=== PATIENT | female | born 1980 | race Caucasian/White ===

== ENCOUNTER 2016-12-31 21:38 | Observation (INO) | payer OTHER ==
[2016-12-31 21:57] LABS: Bilirubin Negative (Negative); Blood, Urine Moderate (Negative); Glucose, Urine (Dipstick) Negative (Negative); Ketone, Urine Negative (Negative); Nitrite Negative (Negative); Protein, Urine (Dipstick) Trace mg/dL (Neg-Trace); Urobilinogen 0.2 mg/dL (0.2-1.0)
[2016-12-31 21:58] LABS: Hyaline Casts/LPF 0-3 HYALINE CAST LPF (0-3 Hyaline); RBC/HPF 21-50 HPF (0-3)
[2016-12-31] MEDS ORDERED: Ondansetron HCl/PF 4 MG/2 ML Vial ONE (22:02)
[2016-12-31] MEDS ORDERED: Morphine 10 MG/ML VIAL ONE (22:02)
[2016-12-31 22:07] LABS: Bacteria/HPF 1+ HPF (None Seen)
--- NOTE | 2016-12-31 22:37 | RAD ---
ONE VIEW ABDOMEN: History: patient. Kidney stone. Comparison: 01-27-16 FINDINGS: Nonspecific bowel gas pattern. Scattered fecal material in a nondistended, nondilated colon is noted . There are punctate calcifications projecting over the left and right renal silhouette. Bilateral r enal calculi are suspected. There is a calcification in the right hemipelvis which was not present o n the examination from January 2016. The possibility of a distal right ureteral calculus cannot be excluded. IMPRESSION: 1. Bilateral intrarenal calculi. 2. Possible distal right ureteral calculus. POS: [facility]
--- NOTE | 2016-12-31 23:48 | ULT ---
RENAL ULTRASOUND: History: patient. Right flank pain. Comparison: 11-04-15 FINDINGS: There is mild dilatation of the right intrarenal collecting system. There is mild right renal cortic al thinning. Nonobstructing calcifications of the renal pelvis are noted. There is left renal cortical thinning. No hydronephrosis. Nonobstructing calcification identified. Left ureteral jet is appreciated. Right ureteral jet is not appreciated. As stated on recent one vie w abdomen, there appears to be a calcification in the right hemipelvis, likely representing a right ureteral calculus. IMPRESSION: Mild right side obstructive uropathy, presumably related to a distal right ureteral calculus. Right ureteral jet not appreciated. POS: [facility]
[2016-12-31 23:49] LABS: #Basophils 0.1 thou/uL (0.0-0.2); #Eosinphils 0.1 thou/uL (0.0-0.7); #Lymphocytes 5.1 thou/uL (1.20-3.40); #Monocytes 1.1 thou/uL (0.11-0.59); #Neutrophils 10.9 thou/uL (1.40-6.50); %Basophils 0.7 % (0.0-1.0); %Eosinophils 0.4 % (0.0-10.0); %Lymphocytes 29.6 % (21.0-51.0); %Monocytes 6.3 % (0.0-10.0); Hematocrit 40.8 % (36.0-47.0); Mean Platelet Volume 9.3 fL (7.4-10.4); Red Blood Cell (RBC) Count 4.29 mill/uL (4.20-5.40); White Blood Cell (WBC) Count 17.3 thou/uL (4.8-10.8)
[2017-01-01] LABS: ALT (SGPT) 10 U/L (8-55); AST (SGOT) 18 U/L (5-34); Alkaline Phosphatase 79 U/L (40-150); Anion Gap 15 mmol/L (10-20); BUN (Urea Nitrogen) 9 mg/dL (7.0-18.7); Bilirubin, Total 0.4 mg/dL (0.2-1.2); Calc. Creatinine Clearance 0 mL/min (70-130); Calcium 9.7 mg/dL (7.8-10.44); Carbon Dioxide 20 mmol/L (22-29); Chloride 104 mmol/L (98-107); Estimated GFR-MDRD 88; Globulin 3.5 g/dL (2.4-3.5); Protein, Total 7.6 g/dL (6.0-8.3)
[2017-01-01] MEDS ORDERED: Ondansetron HCl/PF 4 MG/2 ML Vial IVP PRN (00:18)
[2017-01-01] MEDS ORDERED: MORPHINE 10 MG/ML SYRINGE IV PRN (00:18)
[2017-01-01] MEDS ORDERED: Ondansetron ODT 4 MG TAB SL PRN (00:18)
[2017-01-01 00:34] VITALS: BMI 42.1
[2017-01-01] MEDS ORDERED: Promethazine HCl 25 MG/ML VIAL IM/IV PRN (00:55)
[2017-01-01] MEDS ORDERED: Morphine 4 MG/ML Carpuject SLOW IVP SCH (01:00)
[2017-01-01] MEDS ORDERED: Ketorolac Tromethamine 30 MG/ML VIAL IVP SCH (01:15)
[2017-01-01] MEDS ORDERED: Promethazine HCl 25 MG in Sodium Chloride 0.9% 100 ML IVPB PRN (01:17)
[2017-01-01] MEDS: Sodium Chloride 0.9% 1,000 ML IV SCH ×2 (01:20→09:31)
[2017-01-01] MEDS ORDERED: Acetaminophen 1,000 MG in Premix Bag 1 BAG IVPB SCH (06:00)
[2017-01-01] MEDS: Acetaminophen 1,000 MG in Premix Bag 1 BAG IVPB SCH ×2 (06:35→14:21)
--- NOTE | 2017-01-01 07:36 | CON ---
DATE OF SERVICE: 01/01/2017 HISTORY OF PRESENT ILLNESS: Kathleen is a 36-year-old female G3, P2, well known to me with history of recurrent urolithiasis. The patient has undergone multiple surgical interventions for bilateral kidney stones. I last performed a right ureteroscopy, pyeloscopy, laser lithotripsy 01/21/2016 with endoscopic clearance of her right renal stone burden demonstrating multiple right renal calculi 3-4 in number, variable from punctate, largest in the mid pole measuring 8 mm, lower pole 4 mm, respectively. She subsequently underwent cysto , right stent pull in my office, has cancelled her last appointment with me this year in May. She called the service last night, due to intractable right flank pain, with intermittent nausea. The patient presented to the emergency room with no fever. Vital signs stable; however, has a white count of 17,000. Workup with renal ultrasound demonstrates mild hydronephrosis. Left kidney is grossly unremarkable, right kidney is grossly unremarkable. However, the left ureteral jet was visualized; however, there is no evidence her right ureteral jet. The patient has required IV pain medication since admission. Currently, resting appropriately. She states the pain began this Sunday. She is currently 15 weeks , estimated due date 06/26/2017. PAST MEDICAL HISTORY: History of ulcerative colitis, anxiety/depression, ADD, IBS, mild asthma, recurrent kidney stone, history of preeclampsia, history of gestational diabetes, gallstones. SURGICAL HISTORY: Right wrist 2001. 07/10/2013, history of bilateral retrograde left ureteroscopy, laser lithotripsy 12/2011, right ureteroscopy, laser lithotripsy 04/2012, left ureteroscopy, laser lithotripsy , 07/08/2013, da [place] laparoscopic cholecystectomy. Left retrograde ureteroscopy, laser lithotripsy 07/2014, left ureteroscopy, laser lithotripsy 07/2015, right ureteroscopy, laser lithotripsy 01/2016 SOCIAL HISTORY: She is an ER nurse, lives with her and has 2 healthy children at home. ALLERGIES: No known drug allergies. CURRENT MEDICATIONS: Rocephin, morphine, Zofran, Promethazine. PHYSICAL EXAMINATION: VITAL SIGNS: Stable, 98.3, 70, 124/65, respirations 20. I's and O's, 1114 in, 200 out. GENERAL: The patient currently resting comfortably, has received IV Toradol by OB, with relief of pain on IV Tylenol, Dilaudid p.r.n. HEENT: Grossly unremarkable. HEART: Regular rate. LUNGS: Clear. ABDOMEN: Obese, protuberant. I did not grossly appreciated a gravid uterus on physical exam. No CVA tenderness. Subjective area discomfort in the right lower quadrant. EXTREMITIES: No cyanosis, clubbing or edema. : No significant prolapse. Bimanual exam nontender LABORATORY: White count 17, hemoglobin 13, platelets 234. Urinalysis demonstrated contaminated specimen with 11-20 epithelial cells, 20-50 RBCs, 11- 20 WBCs, small leukocytes, 1+ bacteria, moderate blood, negative nitrites, small leukocytes. IMAGING: Her last CT of record, stone protocol 09/2015. Bilateral nonobstructing renal calculi per my review, left renal no gross evidence of left renal calculi. There are multiple right renal calculi 3-4 in number punctate to large mid pole 7-8 mm, lower pole 4 mm on the right. No hydro bilaterally. The last renal ultrasound on admission, mild dilation of the right collecting system, nonobstructing calcification in the renal pelvis noted. Left kidney with nonobstructing calcification. Left ureteral jet is appreciated. The right ureteral jet is not appreciated. KUB; bilateral calcific density consistent with renal lithiasis. There is a right yana pelvic calcific density not present on prior imaging likely distal ureteral calculi, per my review, it measures approximately 6-7 mm likely the level just proximal or at the level of ureterovesical junction. IMPRESSION AND PLAN: 1. Kathleen is a 36-year-old female, G3, P2 with history of recurrent urolithiasis, who presents on this admission due to intractable pain due to right distal ureteral calculi 2. Leukocytosis with no significant ureteral jet is visualized. I discussed with patient regarding options of: Nephrostomy tube, ureteral stent. If no surgical intervention, i.e., ureteroscopy, laser lithotripsy she will require nephrostomy tube, ureteral stent to be changed at minimum every 4-8 weeks. As she is a recurrent stone former, I would favor more frequent nephrostomy tube, stent exchange until term. The other option include as she is in her second trimester to proceed with stent, ureteroscopy, laser lithotripsy. We discussed the risk of fluoro exposure, although limited and anesthesia complications. I informed the patient the second trimester is an ideal time for ureteroscopy, laser lithotripsy of stone, as compromise as well as technical aspects of grossly gravid uterus is less likely. With all risks and benefits outlined, she desires to proceed with stent, ureteroscopy, laser lithotripsy if amendable. As urinalysis is contaminated recheck UA C\T\S is to be obtained. Results may be somewhat confounded as she has already received Rocephin. The patient n.p.o. for ureteral stent. MTDD
--- NOTE | 2017-01-01 07:58 | HP ---
DATE OF ENCOUNTER: 01/01/2017 PRIMARY OB: Dr. Robert Rey. CHIEF COMPLAINT: Abdominal pain and ureterolithiasis, recurrent. HISTORY OF PRESENT ILLNESS: The patient is a 36-year-old female with an intrauterine at a pproximately 15 weeks gestation with a history of recurrent kidney stones who has presented with acu te onset of right-sided abdominal pain and flank pain that began intermittently about 4 days ago. T he evaluation in the emergency room has confirmed a kidney stone in the distal ureter as well as a n onobstructing stone in the kidney itself. The patient reports she has had kidney stones several martha es in the past and this is the worst that she has felt. Patient denies fever. Reports nausea and v omiting. Denies chest pain, shortness of breath. Denies new rash. Denies vaginal bleeding. Denie s urinary urgency or hematuria. PAST MEDICAL HISTORY: Ulcerative colitis in remission and irritable bowel syndrome. PAST SURGICAL HISTORY: Cholecystectomy, history of section, and ureteral stent placements. PSYCHIATRIC HISTORY: Anxiety and depression. SOCIAL HISTORY: The patient drinks alcohol on occasion last time a couple months ago. The patient denies smoking or drug use. ALLERGIES: No known drug allergies. MEDICATIONS: Zoloft, Ambien, Lialda otherwise known as mesalamine, Diclegis, DHA, Biotin, and Benad ryl. REVIEW OF SYSTEMS: Per HPI. PHYSICAL EXAMINATION: VITAL SIGNS: Blood pressure 144/80, temperature 98.4, pulse is 77, respiratory rate 20. GENERAL: She appears to be in acute distress. She is unable to find a comfortable position and is frequently changing positions in the bed. HEAD: Normocephalic, atraumatic. LUNGS: Clear to auscultation bilaterally. HEART: Has regular rate and rhythm. ABDOMEN: Protuberant. She has right-sided flank and abdominal pain. LABORATORY DATA: White blood cell count is 17.3, hemoglobin 13.4, hematocrit 40.8, platelets of 234 ,000. Sodium is 136, potassium is 3.3, and creatinine is 0.74. LFTs are within normal limits. Uri ne is cloudy with a high specific gravity of 1.024 with a moderate amount of blood, 21 to 50 white b lood cells, negative for nitrites, small leukocyte esterase, positive for calcium oxalate stones or crystals and 1+ bacteria. IMAGING: Abdominal x-ray shows bilateral intrarenal calculi and a possible distal right ureteral ca lculus. Ultrasound shows mild right-sided obstructive uropathy, presumably related to the right dis verito ureteral calculus and a right ureteral jet not appreciated. ASSESSMENT AND PLAN: The patient is a 36-year-old female with an intrauterine at 15 weeks who is having significant right-sided flank pain due to a recurrent kidney stone. The patient rece ived 8 mg of morphine and 1 mg of Dilaudid in the ER without much benefit. We have ordered IV Tylen ol and Phenergan and have gotton 1 more mg of Dilaudid. After IV Tylenol and Dilaudid, patient repo rts that she is feeling a lot better. There is Toradol available in the event that her pain relapse s before she is due for mehul IV Tylenol. The patient's urologist is planning on seeing her in the [facility] and Dr. Benavides, plan tonight is primarily pain control. The patient does not appeared t o be having any residual effects, i.e. elevated creatinine or signs of acute renal failure due to th is ureteral obstruction.
[2017-01-01 08:11] LABS: Bilirubin Negative (Negative); Blood, Urine Small (Negative); Glucose, Urine (Dipstick) Negative (Negative); Ketone, Urine Negative (Negative); Nitrite Negative (Negative); Protein, Urine (Dipstick) Negative (Neg-Trace); Urobilinogen 0.2 mg/dL (0.2-1.0)
[2017-01-01 08:13] LABS: Bacteria/HPF Rare-Few HPF (None Seen); Hyaline Casts/LPF 0-3 HYALINE CAST LPF (0-3 Hyaline); WBC/HPF 21-50 HPF (0-3)
--- NOTE | 2017-01-01 08:50 | PDOC.EVN ---
Event Note - Event Note Event Note: HD#1 Pt is sp consult w urology w plan for cyto, stent placement and possible laser today for obstructing ureteral stone. Questions answered, risk and benefit of procedure in relation to care and development discussed briefly. Likely DC after procedure today.
[2017-01-01] MEDS ORDERED: Fentanyl 100 MCG/2 ML VIAL ONE (10:53)
[2017-01-01] MEDS ORDERED: Iothalamate Meglumine 60% 50 ML VIAL FS ONE (11:11)
[2017-01-01] MEDS ORDERED: Succinylcholine Chloride 20 MG/ML 10 ml SYRINGE FS ONE (11:24)
[2017-01-01] MEDS ORDERED: Glycopyrrolate 0.2 MG/ML 5 ML SYRINGE ONE (11:24)
[2017-01-01] MEDS ORDERED: ePHEDrine/0.9% NaCl/PF SYRINGE 50 mg/10 ml ONE (11:24)
[2017-01-01] MEDS ORDERED: Propofol 200 MG/20 ML VIAL ONE ×2 (11:24)
[2017-01-01] MEDS ORDERED: Lidocaine 1% PF 5 ML VIAL ONE (11:24)
[2017-01-01] MEDS ORDERED: cefTRIAXone\\ROCEPHIN 1 GM, Syringe 0.4 ML in Sterile Water 9.6 ML SLOW IVP SCH ×2 (12:00→23:30)
[2017-01-01] MEDS ORDERED: HYDROcodone/Acetaminophen 5/325 mg Tablet PO PRN ×2 (12:29)
[2017-01-01] MEDS ORDERED: Acetaminophen 500 MG TAB PO PRN (12:29)
[2017-01-01] MEDS ORDERED: Sodium Chloride 0.9% 1,000 ML IV SCH (12:30)
[2017-01-01] MEDS ORDERED: Promethazine HCl 25 MG/ML VIAL ONE (12:46)
--- NOTE | 2017-01-01 15:35 | OP ---
DATE OF PROCEDURE: 01/01/2017 PREOPERATIVE DIAGNOSES: 1. A 36-year-old female G3, P2. Fifteen weeks average gestational age, due date of 06/26/2017, presents for right intractable flank discomfort due to obstructing right distal ureteral calculi measuring 6-7 mm on KUB, renal ultrasound demonstrating no R ureteral jet 2. Bilateral nephrolithiasis, right renal calcific density x3, right mid to upper pole 5 mm, second calcific density 3 mm, 3rd right lower pole 3 3. Left 2-3 mm renal calcific density. POSTOPERATIVE DIAGNOSES: Same PROCEDURES: Cystoscopy, right retrograde; ureteroscopy; pyeloscopy; laser lithotripsy; 6 x 26 double-J ureteral stent placement with danglluis. SURGEON: Jaclyn Benavides D.O. ANESTHESIA: General per patient's request; spinal denied. COMPLICATIONS: None apparent. DISPOSITION: To the recovery room in stable condition. SPECIMEN: Laser lithotripsy of renal calculus for stone analysis. INTRAOPERATIVE FINDINGS: 1. Right intramural ureter changes consistent with obstructing ureteral stone with no evidence of persistent ureteral stone nidus, consistent with spontaneous passage. 2. Multiple right Randalls plaque consistent with recurrent stone from right mid to upper pole and lower pole renal calculi measuring approximately 4-5mm each. 3. Bladder without evidence of gross stone nidus. INDICATIONS FOR PROCEDURE AND HISTORY: Kathleen is a 36-year-old female well known to [place] with recurrent urolithiasis. The patient was last seen 01/27/2016 and she underwent right ureteroscopy and laser lithotripsy with endoscopic clearance. She underwent subsequent stent pull. She subsequently failed to follow up with me on May, patient presented to the emergency room late last night due to intractable right flank pain with intermittent nausea, emesis. She denies history of fever and chills. Pain has been present for approximately 3-4 days. Renal ultrasound demonstrated right hydronephrosis with no evidence of right ureteral jet. Urinalysis initially contaminated with no gross nitrite negative. Recheck UA C\S demonstrates persistent contaminated specimen as catheterization was somewhat hindered by her body habitus; however, no significant bacteriuria was noted. As there is no ureteral jet on renal ultrasound and intractable pain, she desired to proceed with ureteroscopy. She has been fully informed regarding alternative indications such as ureteral stent , nephrostomy tube. If ureteral stent and nephrostomy tube with defer treatment , it will require interval exchanges. I did express concern regarding incrustation of ureteral stent and nephrostomy tube for prolonged period of time in recurrent stone former such as herself. We also discussed risks of anesthesia to patient and fetus given her gestational age. However, as she is in second trimester, I informed the patient that technically, ureteroscopy would be conducible/ideal in second trimester, and although risk is present for the fetus, it is significantly less than in the first trimester. With all risks and benefits outlined, she desires to proceed with ureteroscopy, treatment of her stone. She has been provided broad spectrum antibiotic therapy , spontaneous passage of stone was not appreciated by the nursing staff or the patient. DESCRIPTION OF THE PROCEDURE: After an informed consent is signed, the patient is taken to the operating room, placed in a dorsal lithotomy position with the genital area prepped and draped in the usual surgical sterile fashion. Broad- spectrum antibiotics were provided. A 21 Kinyarwanda cystoscope was utilized for cystoscopy which demonstrated no evidence of passed stone in the bladder. The UOs are identified in normal anatomical location, appeared mildly patulous. There was dilated intramural ureter, consistent with history of obstructing ureteral stone. A 0.35 sensor wire was passed to the level of the right upper pole. I did shield the patient's lower pelvis to protect the fetus at all times Wire was confirmed to be in the right upper pole and a rigid ureteroscope was passed. There was a mass effect indentation of the intramural ureter consistent with history of impacted obstructing ureteral stone. However , the stone was not visualized. I did pass the scope with no gross evidence of stone. As she was passively dilated, a 10 Kinyarwanda dual-lumen access sheath was passed through the existing wire, retrograde pyelogram was performed confirming opacification of the collecting system. Throughout the whole procedure, lower pelvis was covered with lead to avoid fluoroscopic exposure to the fetus. With the wire confirmed, I was able to pass 01/01 Kinyarwanda 26 cm navigator without any problems. I did survey the collecting system demonstrating multiple renal lithiasis. Largest in the right upper pole measuring approximately 5 mm, lower pole approximately 4-5 mm. I did laser lithotripsied these into tiny fragments. Some of the stones were fragmented without difficulty. The residual stones were too small to basket or laser lithotripsy at this time. As we did make progress in her renal lithiasis, I surveyed the ureter, which demonstrated no evidence of mucosal trauma, no evidence of ureteral calculi. A 6 x 26 double-J ureteral stent was then passed. All wires and navigated were removed. The dangler was left in situ. Her right kidney stones were prophylactically treated, as there was ease of accessing her upper right collecting system. Bladder was completely emptied and she tolerated the procedure well. If patient is doing well this afternoon, she will be discharged with antibiotic therapy and pain control as tolerated. Anticipate stent pull in next week. Increased water consumption is advised. I do expect that residual stone nidus as they are small to pass ideally uneventfully. JOSHD
--- NOTE | 2017-01-01 15:46 | RAD ---
RETROGRAD IVP: Comparison: 01-21-16 History: Renal stones. FINDINGS: Intraprocedure fluoroscopy is provided. Two images demonstrate a right sided wire and subsequent pig tail catheter. Contrast opacifies the collecting system. IMPRESSION: Fluoroscopy as above. POS: [facility]
[2017-01-01 17:47] VITALS: BP 122/73; TEMP 98.3
[2017-01-02] MEDS ORDERED: cefTRIAXone\\ROCEPHIN 1 GM, Syringe 0.4 ML in Sterile Water 9.6 ML SLOW IVP SCH (11:00)
[2017-01-02] MEDS ORDERED: cefTRIAXone\\ROCEPHIN 1 GM in Sodium Chloride 0.9% 100 ML IVPB SCH (23:30)
[2017-01-05 12:13] LABS: CA Oxalate Dihydrate 10 % (.); CA Oxalate Monohydrate 70 % (.); CA Phosphate 20 % (.); Color Brown (.)
== END 2017-01-01 17:45 | disposition home or self-care (01) ==
LOC: ERS 21:38 → 3SW 01-01
PROVIDERS: ADMIT Obstetrics & Gynecology; ATTEND Obstetrics & Gynecology
PROC: 0TF68ZZ Fragmentation in Right Ureter, Via Natural or Artificial Opening Endoscopic (ICD-10-PCS; principal; 2017-01-01)
PROC: 0T768DZ Dilation of Right Ureter with Intraluminal Device, Via Natural or Artificial Opening Endoscopic (ICD-10-PCS; 2017-01-01)
DX: O99.89 Other specified diseases and conditions complicating pregnancy, childbirth and the puerperium (principal); N20.2 Calculus of kidney with calculus of ureter; K58.9 Irritable bowel syndrome, unspecified; F41.8 Other specified anxiety disorders; F90.0 Attention-deficit hyperactivity disorder, predominantly inattentive type; J45.909 Unspecified asthma, uncomplicated; D72.829 Elevated white blood cell count, unspecified; Z3A.15 15 weeks gestation of pregnancy; Z79.899 Other long term (current) drug therapy; Z90.49 Acquired absence of other specified parts of digestive tract; Z98.890 Other specified postprocedural states; Z87.442 Personal history of urinary calculi; Z87.59 Personal history of other complications of pregnancy, childbirth and the puerperium
CPT/HCPCS: 51701; 74018; 74420; 76770; 80053; 81001; 81003; 81015; 82365; 85025; 87086; 88300; 94760; 96361; 96365; 96367; 96374; 96375; 96376; A4216; A4353; C1758; C1769; G0378; J0131; J0696; J1170; J1885; J2001; J2270; J2405; J2550; J2704; J3010; J7050; Q9961

== ENCOUNTER 2017-02-17 20:07 | Day surgery (SDC) | payer OTHER | END 2017-02-17 20:47 | disposition home or self-care (01) | LOC: ERS 20:07 → ER/OP 20:07 → ERS 20:47 | PROVIDERS: ATTEND Emergency Medicine | DX: Z57.8 Occupational exposure to other risk factors (principal) ==

== ENCOUNTER 2017-05-09 12:36 | Day surgery (SDC) | payer OTHER ==
[2017-05-09 14:49] VITALS: BP 119/67; TEMP 99.1
[2017-05-09 14:50] VITALS: BMI 42.7
--- NOTE | 2017-05-09 17:54 | PDOC.EVN ---
Event Note - Event Note Event Note: Pt was sent from the office today for monitoring after being evaluated by [place] CNM and noting tachycardia on doppler. The pt was dx w URI that day as that was her presented complaint, tachycardia was incidental finding on doppler evaluation. The pt was observed on L and D with normal FHT, no tachycardia. While I was here evaluating a patient I reviewed her strip and gave a verbal discharge order to charge nurse for her to go home.
== END 2017-05-09 14:33 | disposition home or self-care (01) ==
LOC: L&D/OP 12:36
PROVIDERS: ATTEND Obstetrics & Gynecology
DX: O76 Abnormality in fetal heart rate and rhythm complicating labor and delivery (principal); O99.519 Diseases of the respiratory system complicating pregnancy, unspecified trimester; J06.9 Acute upper respiratory infection, unspecified; O99.619 Diseases of the digestive system complicating pregnancy, unspecified trimester; K51.90 Ulcerative colitis, unspecified, without complications; O99.340 Other mental disorders complicating pregnancy, unspecified trimester; F41.9 Anxiety disorder, unspecified; F32.9 Major depressive disorder, single episode, unspecified; Z3A.00 Weeks of gestation of pregnancy not specified; Z79.899 Other long term (current) drug therapy
CPT/HCPCS: 99282

== ENCOUNTER 2017-05-26 15:47 | Day surgery (SDC) | payer OTHER ==
[2017-05-26 16:28] VITALS: BP 136/67; TEMP 98.6; BMI 43.5
[2017-05-26] MEDS ORDERED: Lactated Ringer's 1,000 ML IV SCH ×2 (16:45)
[2017-05-26] MEDS ORDERED: Promethazine HCl 25 MG/ML VIAL IM/IV PRN (17:56)
--- NOTE | 2017-05-26 20:30 | PRG ---
OB ED NOTE DATE OF SERVICE: 05/26/2017 PRESENTING COMPLAINT: Contractions with nausea and vomiting at 35 weeks' gestation. HISTORY OF PRESENT ILLNESS: She is 35 weeks' gestation, sees Dr. Robert Rey at [facility]. She denies rupture of membranes, bleeding, or vaginal discharge. FORENSIC ACCOUNTANT HISTORY: x2 for repeat in approximately 3 to 4 weeks. MARLENE is 06/26/2017. The makenzie ent also has gestational diabetes, on metformin. PAST MEDICAL HISTORY: Significant for Crohn's disease and nephrolithiasis. PAST SURGICAL HISTORY: Cystoscopy, stents, , and orthopedic surgery. ALLERGIES: None. MEDICATIONS: Zoloft, Wellbutrin, vitamins and metformin. SOCIAL HISTORY: Denies tobacco, alcohol, or IV drug abuse. FAMILY HISTORY: Noncontributory. REVIEW OF SYSTEMS: Noncontributory. Blood type A positive, antibody negative, Pap negative, rubella immune, VDRL nonreactive, hepatitis B , GC chlamydia negative. PHYSICAL EXAMINATION: GENERAL: White female, no real distress. VITAL SIGNS: Upon presentation, temperature 98.6, blood pressure 136/67, pulse 69, respirations 20. HEENT: Within normal limits. LUNGS: Clear to auscultation bilaterally. HEART: Regular rhythm. BREASTS: No masses bilaterally. ABDOMEN: Soft and nontender, without rebound or guarding. Fundal height 35. FHTs 140s. PELVIC: Vulva without lesions. Vagina without discharge. Cervix by nurse exam closed, long, and hi gh. EXTREMITIES: Without clubbing, cyanosis or edema. NONSTRESS TEST: Nonstress test was carried out because of a history of Crohn's disease, nausea, vomi ting, and possible labor. heart rate tracing is in the 130s to 140s category 1, positi ve accelerations, uterine irritability approximately every 3 to 4 minutes was noted. COURSE OF TREATMENT: The patient received IV hydration with 1 liter of lactated Ringer's. Contracti ons are decreased from a 6 to 3 and her nausea had improved. She has taken Zofran at home. We admin istered Stadol and Phenergan IV, which led to resolution of her nausea. She remained afebrile and fe tus remained category 1 tracing throughout. She will be discharged home with ER precautions and clos e follow up at [facility].
== END 2017-05-26 19:10 | disposition home or self-care (01) ==
LOC: L&D/OP 15:47
PROVIDERS: ATTEND Obstetrics & Gynecology
DX: O47.03 False labor before 37 completed weeks of gestation, third trimester (principal); O99.89 Other specified diseases and conditions complicating pregnancy, childbirth and the puerperium; R11.2 Nausea with vomiting, unspecified; O24.415 Gestational diabetes mellitus in pregnancy, controlled by oral hypoglycemic drugs; O99.613 Diseases of the digestive system complicating pregnancy, third trimester; Z79.899 Other long term (current) drug therapy; Z3A.35 35 weeks gestation of pregnancy; Z98.891 History of uterine scar from previous surgery
CPT/HCPCS: J0595; J2550

== ENCOUNTER 2017-06-05 10:08 | Inpatient (IN) | payer OTHER ==
[2017-06-05] MEDS ORDERED: Promethazine HCl 25 MG/ML VIAL IM PRN ×2 (10:23→16:15)
[2017-06-05] MEDS ORDERED: Ondansetron HCl/PF 4 MG/2 ML Vial IVP PRN ×5 (10:23→16:15)
[2017-06-05] MEDS ORDERED: Docusate 100 MG CAP PO PRN (10:23)
[2017-06-05] MEDS ORDERED: Bicitra 30 ML UDCUP PO SCH (10:30)
[2017-06-05] MEDS ORDERED: Lactated Ringer's 1,000 ML IV SCH (10:30)
[2017-06-05] MEDS ORDERED: CEFAZOLIN/Water 2 GM/20 ML SYRINGE SLOW IVP SCH (10:30)
[2017-06-05 11:09] LABS: Hemoglobin 12.1 g/dL (12.0-16.0); Mean Corpuscular HGB CONC 33.2 g/dL (32.0-36.0); Mean Corpuscular Hemoglobin 30.6 pg (27.0-31.0); Mean Platelet Volume 10.3 fL (7.4-10.4); Platelet Count 158 thou/uL (130-400); RBC Distribution Width 12.3 % (11.5-14.5); Red Blood Cell (RBC) Count 3.95 mill/uL (4.20-5.40); White Blood Cell (WBC) Count 10.5 thou/uL (4.8-10.8)
[2017-06-05 11:12] VITALS: BMI 44.4
--- NOTE | 2017-06-05 11:35 | PDOC.LDHP ---
Labor and Delivery H&P Chief complaint: scheduled section HPI: Here for RCS @ 37 weeks for cholestasis of , also with hx of prev CS x 2, obesity, polyhydramnios and A2DM. Current gestational age (weeks): 37 Due date: 06/26/17 Grav: 3 Para: 2 OB History Details: CS x 2, 36 weeks PTL x 2 A2GDM THIS PREG Current complications: gestational diabetes (A2 ON METFORMIN), other ( POLYDRAMNIOS NOTED @ 36 WEEKS, CHOLESTASIS) Abnormal US findings: Yes (POLYHYDRAMNIOS) Past Medical History: OBESITY, DEPRESSION/ANXIETY, GESTATIONAL DM, UC Current medications: other (PNV, METFORMIN, FLONASE, ZOLOFT, LIALDA) Previous surgical history: low tranverse CS, other (LITHOTRIPSY) Allergies/Adverse Reactions: Allergies Allergy/AdvReac Type Severity Reaction Status Date / Time No Known Allergies Allergy Verified 01/01/17 00:41 Social history: none - Physical Exam Vital signs reviewed and normal: yes General: NAD Heart: RRR Lungs: nonlabored breathing Abdomen: gravid Extremeties: trace edema FHT: category 1 - OB Labs Blood type: A RH: positive Antibody Screen: negative HIV: negative RPR: negative HEPSAg: negative 1 hour GCT: positive 3 hour GTT: positive GBS: positive Urine drug screen: not done Rubella: immune - Assessment L&D Assessment: scheduled repeat section - Plan Plan: admit to L&D, to OR for section, informed consent obtained, anesthesia consult for pain management -: A/p: 36YO @ 387 WEEKS W A2DM, OBESITY, ULCERATIVE COLITIS, ANXIETY/ DEPRESSION HERE FOR INDICATED DELIVERY FOR CHOLESTASIS OF DX @ 36 WEEKS W BILE ACIDS 19. TO OR FOR RCS.
[2017-06-05] MEDS ORDERED: Morphine Sulfate 2 MG/ML SYRINGE SLOW IVP PRN ×2 (11:52)
[2017-06-05] MEDS ORDERED: Naloxone HCl 0.4 mg/ml Vial IVP PRN ×2 (11:53)
[2017-06-05] MEDS ORDERED: Naloxone HCl 0.4 mg/ml Vial IV PRN ×3 (11:53→16:15)
[2017-06-05] MEDS ORDERED: Ketorolac Tromethamine 30 MG/ML VIAL IVP PRN ×2 (11:53→16:15)
[2017-06-05] MEDS ORDERED: diphenhydrAMINE 50 MG/ML VIAL IVP PRN (11:53)
[2017-06-05] MEDS ORDERED: Eucerin (Mineral Oil/Petrolatum,White) 30 gm Jar TOP PRN (11:53)
[2017-06-05 11:59] LABS: Syphilis Antibody Nonreactive (Nonreactive); Syphilis Antibody Index 0.05 S/CO (<1.00 Non-Reactive)
[2017-06-05] MEDS ORDERED: Communication Order-Pharmacy FS SCH (12:00)
[2017-06-05] MEDS ORDERED: Oxytocin 10 UNITS/ML VIAL ONE ×2 (12:04→12:44)
[2017-06-05] MEDS ORDERED: Morphine PF 1 MG/ML SYR ONE (12:04)
[2017-06-05] MEDS ORDERED: Metoclopramide HCl 10 MG/2 ML VIAL ONE ×2 (12:05→16:31)
[2017-06-05] MEDS ORDERED: Lidocaine 1% PF 5 ML VIAL ONE (12:15)
[2017-06-05] MEDS ORDERED: Bupivacaine 0.75% W/DEXTROSE 8.25% 2 ML AMP ONE (12:15)
[2017-06-05] MEDS ORDERED: ROPIVACAINE 0.2% NERVE BLCK SCH (12:15)
[2017-06-05] MEDS ORDERED: Ropivacaine HCl/PF 750 ML in Premix Bag 1 BAG NERVE BLCK SCH (12:15)
[2017-06-05] MEDS ORDERED: ePHEDrine/0.9% NaCl/PF SYRINGE 50 mg/10 ml ONE ×2 (12:44→16:31)
[2017-06-05] MEDS ORDERED: Bupivacaine 0.25% HCL 30 ML VIAL ONE (12:53)
[2017-06-05 12:57] LABS: Hep B Surf Ag Non-Reactive S/CO (NonReactive)
--- NOTE | 2017-06-05 13:17 | PDOC.OPDEL ---
OB Operative/Delivery Note Delivery Dr/Surgeon: Candido Assist: Peng Pre-Delivery Diagnosis: scheduled section (cholestasis, A2GDM, polyhydramnios) Procedure/Post Delivery Dx: repeat low transverse CS Weeks gestation: 37 Anesthesia: spinal - Findings A Sex: female Weight: 8 lb 8 oz - 1 min: 8 - 5 min: 9 - Additional Findings/Plan Placenta delivered: manual removal findings: low transverse hysterotomy without extension, normal uterus, normal tubes, normal ovaries Estimated blood loss: 800ml Compilations/Other Findings: none
--- NOTE | 2017-06-05 13:54 | OP ---
DATE OF PROCEDURE: 06/05/2017 PREOPERATIVE DIAGNOSES: 1. A 36-year-old G3, P0-2-0-2 at 37 weeks. 2. Previous section x2. 3. Polyhydramnios. 4. Gestational diabetes. 5. Cholestasis of . POSTOPERATIVE DIAGNOSES: 1. A 36-year-old G3, P0-2-0-2 at 37 weeks. 2. Previous section x2. 3. Polyhydramnios. 4. Gestational diabetes. 5. Cholestasis of . PROCEDURES PERFORMED: 1. Repeat low transverse section. 2. Placement of ON-Q nerve block pump. SURGEON: Robert Rey D.O. COMMUNITY OUTREACH COORDINATOR: Jen Khoury M.D. COMPLICATIONS: None. TYPE OF ANESTHESIA: Spinal per Dr. Foley. ESTIMATED BLOOD LOSS: 800 mL. FINDINGS: 1. Vigorous female , Apgars 8 and 9, to nursery. Weight 8 pounds 8 ounces. 2. Normal appearing uterus, tubes, and ovaries bilaterally. 3. Low transverse hysterotomy without extension. 4. Minimal intraabdominal adhesive disease between the omentum and anterior abdominal wall. 5. Surgical sites hemostatic. PROCEDURE DETAILS: The patient was taken back to the OR with IV fluids running. Once she was in the OR, spinal anesthesia was obtained and the patient was placed in dorsal supine position with a left lateral tilt. A Dong catheter was placed using sterile techniques. Two grams of Ancef were given f or surgical prophylaxis and SCDs were placed on the lower extremities bilaterally and the abdomen was prepped and draped in normal fashion for section. Surgeons were scrubbed in. The anesthes ia was tested and found to be adequate. A Pfannenstiel skin incision was made through the abdomen al estelle the previous surgical scar. The subcutaneous tissue was dissected down with the scalpel as well as Bovie cauterization. Once the fascia was reached, it was incised in the midline and extended supe rolaterally with curved Barriga scissors. Nehemiah clamps were placed at the superior border of the fasci a, which was sharply and bluntly dissected off the rectus abdominis muscles in both caudad and cephal ad directions allowing adequate space for delivery of the . The rectus muscles were in the midline. The omentum was noted to be adhered to the anterior abdominal wall and was dissected away from the rectus muscles and peritoneum. The peritoneum was then stretched laterally. An Fred s O retractor was placed into the peritoneal cavity for retraction, visualization and protection of t he wound. A bladder flap was created with Metzenbaum scissors and the bladder was dissected away fro m the planned hysterotomy site. Low transverse hysterotomy was made with the scalpel. A Wetzel maneuv er was used to extend the hysterotomy. Amniotomy yielded clear amniotic fluid. Infant was then deli chadd through the hysterotomy without difficulty. The body was delivered. The nose and mouth were s uctioned. The cord was doubly clamped and cut and the was handed off to the nursery team for evaluation. Cord blood was collected. The placenta was delivered. Uterus was exteriorized, massage d to firm, and cleared of clot and debris. The hysterotomy was then closed in a running locked fashi on using Monocryl suture. An area of the serosa approximately 1.5-2 cm extending superiorly from the right corner was reapproximated with Monocryl suture with hemostasis and anabaptist of anatomy. Af ter the hysterotomy was closed, it was irrigated, dried, and inspected with no areas of bleeding note d. The hysterotomy and pericolic gutters were copiously irrigated and suctioned dry. The Maxime O r etractor was removed from the abdominal cavity. Muscle belly and fascia were inspected with no areas of bleeding noted. The omentum was inspected with no bleeding noted. The peritoneum was reapproxim ated with plain suture. The muscle fascia was irrigated again and dried. Two ON-Q catheters were pl aced through the skin, subcutaneous tissue, and fascia and directed towards the corners of the incisi on between the rectus fascia and rectus muscles. They were primed with Marcaine. The fascia was tulio pproximated from corner to corner and tied separately in the midline with PDS suture. Subcutaneous t issue was reapproximated with plain gut suture. The skin was reapproximated with 4-[address] mary with Dermabond dressing. The patient was then cleaned, dried and taken to recovery room in goo d condition. All counts were correct x2.
[2017-06-05] MEDS ORDERED: Ketorolac Tromethamine 30 MG/ML VIAL ONE (14:39)
[2017-06-05] MEDS ORDERED: diphenhydrAMINE 50 MG/ML VIAL ONE (14:51)
[2017-06-05] MEDS ORDERED: Ibuprofen 800 MG TAB PO SCH (15:12)
[2017-06-05] MEDS ORDERED: Bisacodyl 10 MG SUPP PR PRN (15:12)
[2017-06-05] MEDS ORDERED: Adacel (T-DAP) 0.5 ML VIAL IM ONE (15:12)
[2017-06-05] MEDS ORDERED: diphenhydrAMINE 25 MG CAP PO PRN (15:12)
[2017-06-05] MEDS ORDERED: Lanolin Ointment 7 GM TUBE TOP PRN (15:12)
[2017-06-05] MEDS ORDERED: Promethazine HCl 25 MG SUPP PR PRN (16:15)
[2017-06-05] MEDS ORDERED: Acetaminophen 1,000 MG in Premix Bag 1 BAG IVPB PRN (16:15)
[2017-06-05] MEDS ORDERED: Hydrocerin (Eucerin) Cream 120 gm Jar TOP PRN (16:15)
[2017-06-05] MEDS: Morphine PF 1 MG/ML SYR IVP PRN ×2 (16:27→19:44)
[2017-06-05] MEDS ORDERED: LR / Pitocin 40 units/1000 ml 1,000 ML IV SCH (17:00)
[2017-06-05] MEDS: Naloxone HCl 0.4 mg/ml Vial IV PRN ×2 (17:52→21:47)
[2017-06-05] MEDS: Simethicone Chewable 80 MG TAB PO PRN (19:44)
[2017-06-05] MEDS: diphenhydrAMINE 50 MG/ML VIAL IVP PRN (19:51)
[2017-06-05] MEDS: Docusate Calcium (SURFAK) 240 MG CAP PO SCH ×2 (22:23)
[2017-06-05] MEDS ORDERED: Meperidine HCl/PF 25 MG/ML VIAL IM PRN (23:59)
[2017-06-05] MEDS ORDERED: Acetaminophen/Codeine 30-300mg Tablet PO PRN ×2 (23:59)
[2017-06-06] MEDS ORDERED: Meperidine HCl/PF 25 MG/ML VIAL IM PRN (00:30)
[2017-06-06] MEDS ORDERED: Acetaminophen/Codeine 30-300mg Tablet PO PRN (00:30)
[2017-06-06] MEDS: Acetaminophen/Codeine 30-300mg Tablet PO PRN ×4 (03:05→18:51)
[2017-06-06 05:26] LABS: Hemoglobin 10.7 g/dL (12.0-16.0); Mean Corpuscular HGB CONC 32.8 g/dL (32.0-36.0); Mean Corpuscular Hemoglobin 29.7 pg (27.0-31.0); Mean Corpuscular Volume 90.6 fl (81.0-99.0); Mean Platelet Volume 9.7 fL (7.4-10.4); Platelet Count 134 thou/uL (130-400); RBC Distribution Width 12.6 % (11.5-14.5); Red Blood Cell (RBC) Count 3.61 mill/uL (4.20-5.40); White Blood Cell (WBC) Count 13.3 thou/uL (4.8-10.8)
[2017-06-06] MEDS: Ibuprofen 800 MG TAB PO SCH ×3 (06:02→20:51)
[2017-06-06] MEDS: Prenatal Vitamin 1 TAB PO SCH (08:00)
[2017-06-06] MEDS: diphenhydrAMINE 50 MG/ML VIAL IVP PRN (08:01)
[2017-06-06] MEDS: Docusate Calcium (SURFAK) 240 MG CAP PO SCH ×4 (08:01→21:21)
[2017-06-06] MEDS ORDERED: Sodium Chloride 0.9% 10 ML ONE (08:05)
--- NOTE | 2017-06-06 08:15 | ADD-OP ---
DATE OF SERVICE: 06/05/2017 I was present and scrubbed to assist the uncomplicated repeat section with Dr. Robert Rey. Please see her note for full details.
[2017-06-06] MEDS: Naloxone HCl 0.4 mg/ml Vial IV PRN (08:49)
--- NOTE | 2017-06-06 10:08 | PDOC.PP ---
Post Progress Note Post Day #: 1 Subjective: tolerating regular diet, ambulating OK this AM, pain controlled w OnQ and meds, not sure if OnQ is helping PO intake tolerated: yes Flatus: yes Ambulation: yes Vital Signs (12 hours) Temp Pulse Resp BP 06/06/17 08:07 97.9 F 71 20 109/61 06/06/17 07:45 97.9 F 71 20 06/06/17 06:00 98.3 F 81 16 122/60 06/06/17 04:00 98.3 F 81 16 06/06/17 02:00 16 06/06/17 00:00 98.6 F 94 16 127/71 Weight Weight 275 lb - Physical Examination General: NAD Respiratory: non-labored breathing Abdominal: no distention, appropriately TTP Fundus firm & at: below umb Extremities: negative homans (B) Skin: CS incision dry & intact, no rash Neurological: no gross focal deficits Psychiatric: A&Ox3, normal affect Result Diagrams: 06/06/17 05:02 Additional Labs: Post Labs Blood Type A POSITIVE 06/05/17 10:58 Hep Bs Antigen Non-Reactive S/CO (NonReactive) 06/05/17 10:58 (1) delivery delivered Code(s): O82 - ENCOUNTER FOR DELIVERY WITHOUT INDICATION Status: Acute (2) Gestational diabetes mellitus, class A2 Code(s): O24.419 - GESTATIONAL DIABETES MELLITUS IN , UNSP CONTROL Status: Acute (3) Cholestasis during Code(s): O26.619 - LIVER AND BILIARY TRACT DISORD IN , UNSP TRIMESTER; K83.1 - OBSTRUCTION OF BILE DUCT Status: Acute (4) Previous section Code(s): Z98.891 - HISTORY OF UTERINE SCAR FROM PREVIOUS SURGERY Status: Acute (5) 37 weeks gestation of Code(s): Z3A.37 - 37 WEEKS GESTATION OF Status: Acute (6) state Code(s): Z39.2 - ENCOUNTER FOR ROUTINE FOLLOW-UP Status: Ruled-out - Assessment/Plan POD 1 doing well, continue PP care. Discussed turn down/off On Q and if no increase in pain with it off OK to DC early. Discussed options of changing the rate. Poss DC tomorrow vs Sunday.
[2017-06-07] MEDS: Ibuprofen 800 MG TAB PO SCH ×3 (05:33→22:15)
[2017-06-07] MEDS: Acetaminophen/Codeine 30-300mg Tablet PO PRN ×4 (05:33→19:32)
--- NOTE | 2017-06-07 08:51 | PDOC.PP ---
Post Progress Note Post Day #: 2 Subjective: Doing well, OnQ is helping, dialed down rate and noted increase discomfort yesterday, much better today. Meeting post op goals. PO intake tolerated: yes Flatus: yes Ambulation: yes Vital Signs (12 hours) Temp Pulse Resp BP 06/07/17 07:53 98.0 F 71 20 136/74 06/07/17 04:00 99.0 F 67 16 06/07/17 02:41 97.6 F 06/07/17 00:57 98.1 F 67 16 130/63 06/06/17 20:58 98.0 F Weight Weight 275 lb - Physical Examination General: NAD Respiratory: non-labored breathing Abdominal: no distention Fundus firm & at: below umb Skin: CS incision dry & intact, no rash Neurological: no gross focal deficits Psychiatric: A&Ox3, normal affect Result Diagrams: 06/06/17 05:02 Additional Labs: Post Labs Blood Type A POSITIVE 06/05/17 10:58 Hep Bs Antigen Non-Reactive S/CO (NonReactive) 06/05/17 10:58 (1) delivery delivered Code(s): O82 - ENCOUNTER FOR DELIVERY WITHOUT INDICATION Status: Acute (2) Gestational diabetes mellitus, class A2 Code(s): O24.419 - GESTATIONAL DIABETES MELLITUS IN , UNSP CONTROL Status: Acute (3) Cholestasis during Code(s): O26.619 - LIVER AND BILIARY TRACT DISORD IN , UNSP TRIMESTER; K83.1 - OBSTRUCTION OF BILE DUCT Status: Acute (4) Previous section Code(s): Z98.891 - HISTORY OF UTERINE SCAR FROM PREVIOUS SURGERY Status: Acute (5) 37 weeks gestation of Code(s): Z3A.37 - 37 WEEKS GESTATION OF Status: Acute (6) state Code(s): Z39.2 - ENCOUNTER FOR ROUTINE FOLLOW-UP Status: Ruled-out - Assessment/Plan POD #2 sp RCS for cholestasis @ 37 weeks, polyhydramnios, GDM. Desires DC home tomorrow, baby under phototherapy.
[2017-06-07] MEDS: Docusate Calcium (SURFAK) 240 MG CAP PO SCH ×4 (09:49→22:15)
[2017-06-07] MEDS: Prenatal Vitamin 1 TAB PO SCH (09:49)
[2017-06-07] MEDS: Simethicone Chewable 80 MG TAB PO PRN (22:15)
[2017-06-08] MEDS: Acetaminophen/Codeine 30-300mg Tablet PO PRN ×2 (04:05→08:51)
[2017-06-08 04:16] VITALS: BP 127/60; TEMP 98.5
[2017-06-08] MEDS: Ibuprofen 800 MG TAB PO SCH ×2 (06:12→08:50)
[2017-06-08] MEDS: Prenatal Vitamin 1 TAB PO SCH (08:50)
[2017-06-08] MEDS: Docusate Calcium (SURFAK) 240 MG CAP PO SCH ×2 (08:50)
--- NOTE | 2017-06-08 12:05 | PDOC.PP ---
Post Progress Note Post Day #: 3 Subjective: discomfort in RLQ w activity only, doing well otherwise, pain controlled w meds PO intake tolerated: yes Flatus: yes Ambulation: yes Vital Signs (12 hours) Temp Pulse Resp BP 06/08/17 08:00 98.5 F 78 19 06/08/17 04:15 98.5 F 78 19 127/60 06/08/17 00:10 98.6 F 80 19 136/63 Weight Weight 275 lb - Physical Examination General: NAD Respiratory: non-labored breathing Abdominal: no distention, appropriately TTP Extremities: negative homans (B) Skin: CS incision dry & intact, no rash Neurological: no gross focal deficits Psychiatric: A&Ox3, normal affect Result Diagrams: 06/06/17 05:02 Additional Labs: Post Labs Blood Type A POSITIVE 06/05/17 10:58 Hep Bs Antigen Non-Reactive S/CO (NonReactive) 06/05/17 10:58 (1) delivery delivered Code(s): O82 - ENCOUNTER FOR DELIVERY WITHOUT INDICATION Status: Acute (2) Gestational diabetes mellitus, class A2 Code(s): O24.419 - GESTATIONAL DIABETES MELLITUS IN , UNSP CONTROL Status: Acute (3) Cholestasis during Code(s): O26.619 - LIVER AND BILIARY TRACT DISORD IN , UNSP TRIMESTER; K83.1 - OBSTRUCTION OF BILE DUCT Status: Acute (4) Previous section Code(s): Z98.891 - HISTORY OF UTERINE SCAR FROM PREVIOUS SURGERY Status: Acute (5) 37 weeks gestation of Code(s): Z3A.37 - 37 WEEKS GESTATION OF Status: Acute (6) state Code(s): Z39.2 - ENCOUNTER FOR ROUTINE FOLLOW-UP Status: Ruled-out - Assessment/Plan POD3 doing well, plan for discharge today, discussed removing OnQ catheters.
== END 2017-06-08 13:30 | disposition home or self-care (01) | DRG 765 ==
LOC: L&D 10:08 → 3SW 16:09
PROVIDERS: ADMIT Obstetrics & Gynecology; ATTEND Obstetrics & Gynecology
PROC: 10D00Z1 Extraction of Products of Conception, Low, Open Approach (ICD-10-PCS; principal; 2017-06-05)
DX: O34.211 Maternal care for low transverse scar from previous cesarean delivery (principal); K83.1 Obstruction of bile duct; O26.62 Liver and biliary tract disorders in childbirth; O24.429 Gestational diabetes mellitus in childbirth, unspecified control; O40.3XX0 Polyhydramnios, third trimester, not applicable or unspecified; Z68.41 Body mass index [BMI] 40.0-44.9, adult; E66.9 Obesity, unspecified; O99.214 Obesity complicating childbirth; O99.344 Other mental disorders complicating childbirth; F41.9 Anxiety disorder, unspecified; F32.9 Major depressive disorder, single episode, unspecified; Z3A.37 37 weeks gestation of pregnancy; Z37.0 Single live birth
CPT/HCPCS: 36415; 51702; 85027; 86780; 86850; 86900; 86901; 87340; 90471; 90715; 90732; A4216; G0009; J1200; J1885; J2001; J2274; J2310; J2590; J2765; J2795; J3490; S0020

== ENCOUNTER 2017-08-29 11:36 | Outpatient (CLI) | payer OTHER ==
[2017-08-29 12:19] LABS: ALT (SGPT) 23 U/L (8-55); AST (SGOT) 29 U/L (5-34); Albumin 4.2 g/dL (3.5-5.0); Alkaline Phosphatase 95 U/L (40-150); Anion Gap 12 mmol/L (10-20); BUN (Urea Nitrogen) 12 mg/dL (7.0-18.7); Bilirubin, Total 0.4 mg/dL (0.2-1.2); Calc. Creatinine Clearance 0 mL/min (70-130); Calcium 9.2 mg/dL (7.8-10.44); Carbon Dioxide 26 mmol/L (22-29); Cardiac Risk 3.6 (Less than 4.5); Chloride 105 mmol/L (98-107); Cholesterol 170 mg/dl (< 200 Desired); Estimated GFR-MDRD 90; Globulin 3.1 g/dL (2.4-3.5); Glucose 105 mg/dL (70-105); HDL Cholesterol 47 mg/dL (>60 Neg Risk); LDL Cholesterol, Calculated 90 mg/dL; Potassium 4.2 mmol/L (3.5-5.1); Protein, Total 7.3 g/dL (6.0-8.3); Sodium 139 mmol/L (136-145); Triglycerides 165 mg/dL (Less than 150)
[2017-08-29 12:22] LABS: #Basophils 0.1 thou/uL (0.0-0.2); #Eosinphils 0.2 thou/uL (0.0-0.7); #Lymphocytes 3.6 thou/uL (1.20-3.40); #Monocytes 0.7 thou/uL (0.11-0.59); #Neutrophils 5.8 thou/uL (1.40-6.50); %Basophils 1.2 % (0.0-1.0); %Eosinophils 2.3 % (0.0-10.0); %Lymphocytes 34.6 % (21.0-51.0); %Neutrophils 54.9 % (42.0-75.0); Hemoglobin 13.5 g/dL (12.0-16.0); Mean Corpuscular HGB CONC 32.6 g/dL (32.0-36.0); Mean Corpuscular Hemoglobin 28.8 pg (27.0-31.0); Mean Corpuscular Volume 88.3 fL (78.0-98.0); Mean Platelet Volume 10.9 fL (7.4-10.4); Platelet Count 213 thou/uL (130-400); RBC Distribution Width 12.6 % (11.5-14.5); Red Blood Cell (RBC) Count 4.69 mill/uL (4.20-5.40); White Blood Cell (WBC) Count 10.5 thou/uL (4.8-10.8)
[2017-08-29 12:34] LABS: Bilirubin Negative (Negative); Blood, Urine Small (Negative); Glucose, Urine (Dipstick) Negative (Negative); Leukocyte Moderate (Negative); Nitrite Negative (Negative); Protein, Urine (Dipstick) Negative (Neg-Trace); Specific Gravity, Urine 1.015 (1.005-1.030); Urobilinogen 0.2 mg/dL (0.2-1.0)
[2017-08-29 13:01] LABS: Clarity Slightly Cloudy (Clear)
[2017-08-29 13:05] LABS: RBC/HPF 0-3 HPF (0-3)
[2017-08-29 13:06] LABS: Bacteria/HPF 3+ HPF (None Seen); Squamous Epithelial 0-3 HPF (0-3)
--- NOTE | 2017-08-29 14:18 | ULT ---
BILATERAL RENAL ULTRASOUND: Date: 08/29/17 HISTORY: Recurrent UTIs. COMPARISON: 12/31/16. FINDINGS: Real-time imaging of the right and left kidneys were performed. The right kidney measures 12.7 cm and left kidney measures 13.0 cm in size. Cortical thinning is seen involving both kidneys. No signs of any mass or obstruction. Bladder region appears unremarkable. IMPRESSION: Cortical thinning involving both kidneys. No signs of obstruction. POS: [facility]
== END 2017-08-29 11:37 | disposition home or self-care (01) ==
LOC: SCSULT 11:36
PROVIDERS: ATTEND Urology
DX: N20.0 Calculus of kidney (principal); R35.0 Frequency of micturition
CPT/HCPCS: 36415; 76770; 80053; 80061; 81001; 84443; 85025; 87077; 87086; 87186

== ENCOUNTER 2017-09-21 11:34 | Outpatient (CLI) | payer OTHER ==
[2017-09-21 12:45] LABS: Anion Gap 12 mmol/L (10-20); BUN (Urea Nitrogen) 11 mg/dL (7.0-18.7); Calc. Creatinine Clearance 0 mL/min (70-130); Calcium 9.1 mg/dL (7.8-10.44); Carbon Dioxide 25 mmol/L (22-29); Chloride 105 mmol/L (98-107); Estimated GFR-MDRD 86; Glucose 86 mg/dL (70-105); Potassium 4.2 mmol/L (3.5-5.1); Sodium 138 mmol/L (136-145)
--- NOTE | 2017-09-21 15:41 | CT ---
CT ABDOMEN WITH AND WITHOUT CONTRAST CT PELVIS WITH AND WITHOUT CONTRAST: (CT urogram) 09/21/17 HISTORY: 37-year-old female with recurrent urinary tract infections, and right flank pain. TECHNIQUE: IV contrast: Isovue. Precontrast scan, nephrographic/venous phase scan, and excretory/pyelographic phase scan, performed t hrough the entire abdomen and pelvis. Coronal reconstructions of excretory phase scan. COMPARISON: Noncontrast CT of 10/11/15 FINDINGS: On the previous CT, there were several right renal calculi. On the current CT, there are fewer right renal calculi; at least two are noted, a 6 x 5 mm calculus at a mid pole calyx, and a 2 x 2 mm calcul us at a lower pole calyx. Previously, there were no left sided renal calculi. Currently, there are at least two left renal calc karen: a 3 x 3 mm calculus at an upper-mid pole calyx and a tiny 2 x 2 mm calculus at a lower pole maximilian x. There is no hydronephrosis bilaterally. There is no striation of the nephrograms (no evidence of pyel onephritis). On the nephrographic phase, there is a 0.6 x 0.6 cm tiny subtle focal round hypodense le ricardo at the medial aspect of the right renal lower pole parenchyma, which is too small to definitely characterize, but statistically most likely represents a cyst. A similar finding is noted in the ante rior aspect of the left mid pole. There is no calculus in the ureters or urinary bladder. The urinary bladder, appendix, abdominal aorta, adrenals, pancreas, and spleen, are normal. Diffusely slightly l ow hepatic attenuation represents fatty liver. No discrete hepatic lesion. No portal vein thrombosis. No small bowel dilation. No acute colonic diverticulitis. Minimal free fluid in the pelvis is probab ly physiologic in a female patient of menstruating age, similar to previous CT. No small bowel dilati on. No pneumoperitoneum. Bilateral lung bases are clear. No pleural effusion. No destructive osseous lesion. IMPRESSION: 1. Bilateral nephrolithiasis. 2. Currently no obstructive uropathy. 3. No CT evidence of pyelonephritis or cystitis. 4. Hepatic steatosis. POS: [facility]
== END 2017-09-21 11:35 | disposition home or self-care (01) ==
LOC: CT 11:34
PROVIDERS: ATTEND Urology
DX: N20.0 Calculus of kidney (principal); N39.0 Urinary tract infection, site not specified; K76.0 Fatty (change of) liver, not elsewhere classified
CPT/HCPCS: 36415; 74178; 80048

== ENCOUNTER 2017-12-12 15:03 | Outpatient (CLI) | payer OTHER ==
[2017-12-12 15:49] LABS: Anion Gap 13 mmol/L (10-20); BUN (Urea Nitrogen) 13 mg/dL (7.0-18.7); Calc. Creatinine Clearance 0 mL/min (70-130); Calcium 9.5 mg/dL (7.8-10.44); Carbon Dioxide 26 mmol/L (22-29); Chloride 105 mmol/L (98-107); Estimated GFR-MDRD Greater than 90; Glucose 84 mg/dL (70-105); Potassium 3.8 mmol/L (3.5-5.1); Sodium 140 mmol/L (136-145)
[2017-12-12 16:04] LABS: Bilirubin Negative (Negative); Blood, Urine Moderate (Negative); Clarity Cloudy (Clear); Glucose, Urine (Dipstick) Negative (Negative); Leukocyte Moderate (Negative); Nitrite Negative (Negative); Protein, Urine (Dipstick) Trace mg/dL (Neg-Trace); Specific Gravity, Urine 1.025 (1.005-1.030); Urobilinogen 0.2 mg/dL (0.2-1.0); pH, Urine 6.5 (5.0-9.0)
[2017-12-12 16:12] LABS: RBC/HPF 21-50 HPF (0-3); WBC/HPF 21-50 HPF (0-3)
[2017-12-12 16:13] LABS: Bacteria/HPF 2+ HPF (None Seen)
[2017-12-12 16:14] LABS: Hyaline Casts/LPF 0-3 HYALINE CAST LPF (0-3 Hyaline)
[2017-12-12 16:15] LABS: Crystals/HPF 2+ CA OXALATE HPF (Negative)
--- NOTE | 2017-12-12 17:19 | RAD ---
KUB: 12/12/17 INDICATION: History of renal stones. COMPARISON: Prior study dated 09/04/17. CT of the abdomen and pelvis dated 09/21/17. 5 mm stone within the superior to mid pole of the right kidney is stable. Tiny 1 to 2 mm stone involv ing the inferior pole of the right kidney is stable. No suspicious calcification is seen along the ex pected course of the renal collecting system. Tiny punctate stones within the left kidney are not wel l seen on the current study. Bowel gas pattern is unobstructed. Lung bases are clear. No acute osseou s abnormality is evident. IMPRESSION: Stable right nephrolithiasis. POS: [facility]
== END 2017-12-12 15:04 | disposition home or self-care (01) ==
LOC: SCSRAD 15:03
PROVIDERS: ATTEND Urology
DX: N20.0 Calculus of kidney (principal); N39.0 Urinary tract infection, site not specified
CPT/HCPCS: 36415; 74018; 80048; 81001; 87086

== ENCOUNTER 2018-01-22 10:30 | Outpatient (CLI) | payer OTHER ==
[2018-01-22 22:03] LABS: Anion Gap 13 mmol/L (10-20); BUN (Urea Nitrogen) 17 mg/dL (7.0-18.7); Calc. Creatinine Clearance 0 mL/min (70-130); Carbon Dioxide 23 mmol/L (22-29); Chloride 105 mmol/L (98-107); Estimated GFR-MDRD 77; Glucose 90 mg/dL (70-105); Potassium 3.6 mmol/L (3.5-5.1); Sodium 137 mmol/L (136-145)
== END 2018-01-22 10:31 | disposition home or self-care (01) ==
LOC: LAB 10:30
PROVIDERS: ATTEND Urology
DX: N39.0 Urinary tract infection, site not specified (principal)
CPT/HCPCS: 80048

== ENCOUNTER 2018-01-25 13:30 | Outpatient (CLI) | payer OTHER | END 2018-01-25 13:31 | disposition home or self-care (01) | LOC: DTY/OP 13:30 | PROVIDERS: ATTEND Urology | DX: E66.01 Morbid (severe) obesity due to excess calories (principal) | CPT/HCPCS: 81001; 87086; 97802 ==

== ENCOUNTER 2018-02-01 09:00 | Inpatient (IN) | payer OTHER ==
[2018-02-01 09:39] VITALS: BMI 40.3
[2018-02-06] MEDS ORDERED: Bupivacaine/Epinephrine 0.25% 30 ML VIAL ONE (12:29)
[2018-02-06] MEDS ORDERED: Fentanyl 250 MCG/5 ML VIAL ONE (12:45)
[2018-02-06] MEDS ORDERED: Heparin 5,000 UNITS/ML VIAL ONE (12:45)
[2018-02-06] MEDS ORDERED: Midazolam HCl 2 mg/2 ml Vial ONE (12:45)
[2018-02-06] MEDS ORDERED: CEFAZOLIN 2 GM/50 ML BAG ONE (12:46)
[2018-02-06] MEDS ORDERED: Promethazine HCl 25 MG/ML VIAL IM PRN ×3 (13:38→14:08)
[2018-02-06] MEDS ORDERED: Promethazine HCl 25 MG/ML VIAL SLOW IVP PRN (13:38)
[2018-02-06] MEDS ORDERED: Ondansetron HCl/PF 4 MG/2 ML Vial IVP PRN (13:38)
[2018-02-06] MEDS ORDERED: diphenhydrAMINE 25 MG CAP PO PRN (13:40)
[2018-02-06] MEDS ORDERED: HYDROmorphone 10 mg/100 ml CADD IVPB PRN (13:40)
[2018-02-06] MEDS ORDERED: diphenhydrAMINE 50 MG/ML VIAL IM PRN (13:40)
[2018-02-06] MEDS ORDERED: Naloxone HCl 0.4 mg/ml Vial IV PRN (13:40)
[2018-02-06] MEDS ORDERED: Zolpidem Tartrate 5 MG TAB PO PRN (13:40)
[2018-02-06] MEDS ORDERED: diphenhydrAMINE 50 MG/ML VIAL IVP PRN ×2 (13:40→14:08)
[2018-02-06] MEDS ORDERED: Ondansetron PF 4 MG/2 ML Vial IVP PRN ×2 (13:40→14:08)
[2018-02-06] MEDS ORDERED: Communication Order-Pharmacy FS SCH (13:45)
[2018-02-06] MEDS ORDERED: Hydrocodone-Acetamin 15 ML UDCUP PO PRN (14:08)
[2018-02-06] MEDS ORDERED: hydrALAZINE 20 MG/ML VIAL SLOW IVP PRN (14:08)
[2018-02-06] MEDS ORDERED: Dextrose 50% Abboject 50 ML SYRINGE SLOW IVP PRN (14:08)
[2018-02-06] MEDS ORDERED: Dextrose 5% in Water 1,000 ML IV PRN (14:08)
[2018-02-06] MEDS ORDERED: Fentanyl 100 MCG/2 ML VIAL ONE (14:27)
[2018-02-06] MEDS ORDERED: HYDROmorphone 2 MG/ML VIAL ONE (14:47)
[2018-02-06] MEDS ORDERED: Promethazine HCl 25 MG/ML VIAL ONE (14:47)
[2018-02-06] MEDS ORDERED: D5 1/2 NS w/20 mEq KCL 1,000 ML ONE (15:10)
[2018-02-06] MEDS: D5 1/2 NS w/20 mEq KCL 1,000 ML IV SCH ×2 (17:01→21:32)
[2018-02-06] MEDS: Ketorolac Tromethamine 30 MG/ML VIAL IVP SCH ×2 (18:51→23:56)
--- NOTE | 2018-02-06 21:07 | OP ---
DATE OF PROCEDURE: 02/06/2018 PREOPERATIVE DIAGNOSIS: Morbid obesity. PROCEDURES PERFORMED: Laparoscopic sleeve gastrectomy and esophagogastroscopy. INDICATIONS: A 37-year-old female, morbidly obese, who was attempted multiple weight loss programs without success. FINDINGS: A 38-Nigerian bougie was used. DESCRIPTION OF PROCEDURE: After informed consent was obtained, the patient was taken to the operating room, given general endotracheal anesthesia. She was placed in supine position. Abdomen was prepped and draped in usual fashion. Local anesthesia infiltrated subcutaneously and deep. 12 mm incision was performed approximately 8-inch above the xiphoid, slightly to the left. Veress needle inserted. Drop test performed. Pneumoperitoneum was created to a volume of 2 L of carbon dioxide. Utilizing a bladeless 12 mm trocar and 0-degree laparoscope, direct visual entry into the abdominal cavity was performed. Pneumoperitoneum was created to a pressure of 15 mmHg. The patient was placed in steep reverse Trendelenburg position. Brian liver retractor inserted. Left lobe of the liver retracted superiorly. The pylorus was identified. A 12-mm port was placed on the right beneath it and two 12s placed left subcostal. The omentum was taken off the greater curvature 5 cm from the pylorus utilizing the LigaSure. Short gastrics divided utilizing the LigaSure and left crura defined with the LigaSure. A 38-Nigerian bougie inserted, directed into the antrum. The linear 60-mm green load stapler was used to divide the stomach along the bougie, gold load along the bougie, and a series of blues through the angle of His. Intraoperative endoscopy was performed. The video endoscope inserted under direct vision and advanced into the sleeve. The staple line inspected. There was no bleeding. Staple line then tested by inflating the new stomach with pressurized air sterile water. There was no air leak. Stomach decompressed. Scope removed. The remnants of stomach removed from the abdomen through the left lateral port site. The fascia was closed with 0 Vicryl suture and the GraNee needle. Hemostasis assured. Trocars and retractors were removed. Skin was closed with interrupted 4-0 Rapide. Dermabond was applied. The patient tolerated the procedure well, transferred to Recovery in good condition. Sponge and needle count verified correct x2. Job ID: [id number]
[2018-02-06] MEDS: CEFAZOLIN 2 GM/50 ML BAG IVPB SCH (21:25)
[2018-02-07] MEDS: Ketorolac Tromethamine 30 MG/ML VIAL IVP SCH ×2 (05:21→12:04)
[2018-02-07] MEDS: CEFAZOLIN 2 GM/50 ML BAG IVPB SCH (05:22)
[2018-02-07] MEDS: D5 1/2 NS w/20 mEq KCL 1,000 ML IV SCH ×2 (06:14→08:19)
[2018-02-07 08:23] LABS: Anion Gap 12 mmol/L (10-20); BUN (Urea Nitrogen) 6 mg/dL (7.0-18.7); Calc. Creatinine Clearance 192 mL/min (70-130); Calcium 8.8 mg/dL (7.8-10.44); Carbon Dioxide 23 mmol/L (22-29); Chloride 109 mmol/L (98-107); Estimated GFR-MDRD Greater than 90; Glucose 120 mg/dL (70-105); Potassium 3.8 mmol/L (3.5-5.1); Sodium 140 mmol/L (136-145)
[2018-02-07 08:39] LABS: #Basophils 0.1 thou/uL (0.0-0.2); #Eosinphils 0.1 thou/uL (0.0-0.7); #Lymphocytes 3.9 thou/uL (1.20-3.40); #Neutrophils 8.4 thou/uL (1.40-6.50); %Basophils 0.8 % (0.0-1.0); %Eosinophils 0.4 % (0.0-10.0); %Monocytes 7.3 % (0.0-10.0); %Neutrophils 62.5 % (42.0-75.0); Hemoglobin 12.8 g/dL (12.0-16.0); Mean Corpuscular HGB CONC 33.8 g/dL (32.0-36.0); Mean Corpuscular Hemoglobin 31.3 pg (27.0-31.0); Mean Corpuscular Volume 92.4 fL (78.0-98.0); Mean Platelet Volume 10.2 fL (7.4-10.4); Platelet Count 195 thou/uL (130-400); RBC Distribution Width 12.5 % (11.5-14.5); White Blood Cell (WBC) Count 13.4 thou/uL (4.8-10.8)
[2018-02-07] MEDS ORDERED: Enoxaparin Sodium 40 MG/0.4 ML SYRINGE SC SCH (09:00)
[2018-02-07] MEDS ORDERED: Pantoprazole 40 MG VIAL IVP SCH (09:00)
--- NOTE | 2018-02-07 10:11 | RAD ---
LIMITED UPPER GI WITH SINGLE-SIP 15 ML ORAL GASTROGRAFIN: HISTORY: Status post recent vertical sleeve gastrectomy. FINDINGS: There is prompt passage of contrast from the esophagus into the stomach. No contrast extravasation i s seen. IMPRESSION: No evidence of obstruction or leak. POS: [facility]
[2018-02-07 11:33] VITALS: BP 103/67; TEMP 98.2
--- NOTE | 2018-02-07 15:59 | DIS ---
DATE OF ADMISSION: 02/06/2018 DATE OF DISCHARGE: 02/07/2018 DISCHARGE DIAGNOSIS: Morbid obesity. PROCEDURES DURING ADMISSION: Laparoscopic sleeve gastrectomy, intraoperative esophagogastroscopy, and postoperative Gastrografin swallow. HOSPITAL COURSE: The patient was admitted, taken the OR, where she underwent a sleeve gastrectomy. Postoperatively, she has done well. She is tolerating liquids well. Pain was controlled on p.o. medications. She was discharged on hydrocodone and Zofran and will follow up with me in 2 weeks. Job ID: [id number]
== END 2018-02-07 12:25 | disposition home or self-care (01) | DRG 621 ==
LOC: SURG A 02-06 12:01 → SJJU 02-06 16:26
PROVIDERS: ADMIT Surgery; ATTEND Surgery
PROC: 0DB64Z3 Excision of Stomach, Percutaneous Endoscopic Approach, Vertical (ICD-10-PCS; principal; 2018-02-06)
DX: E66.01 Morbid (severe) obesity due to excess calories (principal); Z68.41 Body mass index [BMI] 40.0-44.9, adult; F41.9 Anxiety disorder, unspecified; F32.9 Major depressive disorder, single episode, unspecified; F98.8 Other specified behavioral and emotional disorders with onset usually occurring in childhood and adolescence; K58.9 Irritable bowel syndrome, unspecified; Z87.891 Personal history of nicotine dependence; Z82.49 Family history of ischemic heart disease and other diseases of the circulatory system; Z83.3 Family history of diabetes mellitus; Z82.3 Family history of stroke
CPT/HCPCS: 36415; 74241; 80048; 85025; 88307; 88312; 94760; C9113; J1170; J1200; J1644; J1650; J1885; J2250; J2405; J2550; J3010

== ENCOUNTER 2018-02-01 09:30 | Outpatient (CLI) | payer OTHER ==
[2018-02-01 10:41] LABS: #Basophils 0.2 thou/uL (0.0-0.2); #Eosinphils 0.2 thou/uL (0.0-0.7); #Lymphocytes 3.7 thou/uL (1.20-3.40); #Monocytes 0.6 thou/uL (0.11-0.59); #Neutrophils 4.8 thou/uL (1.40-6.50); %Basophils 1.6 % (0.0-1.0); %Eosinophils 2.4 % (0.0-10.0); %Lymphocytes 39.1 % (21.0-51.0); %Neutrophils 50.8 % (42.0-75.0); Hemoglobin 14.8 g/dL (12.0-16.0); Mean Corpuscular HGB CONC 33.3 g/dL (32.0-36.0); Mean Corpuscular Hemoglobin 30.5 pg (27.0-31.0); Mean Corpuscular Volume 91.6 fL (78.0-98.0); Mean Platelet Volume 9.2 fL (7.4-10.4); Platelet Count 252 thou/uL (130-400); RBC Distribution Width 12.7 % (11.5-14.5); Red Blood Cell (RBC) Count 4.84 mill/uL (4.20-5.40); White Blood Cell (WBC) Count 9.5 thou/uL (4.8-10.8)
[2018-02-01 10:51] LABS: BHCG - Serum Negative (NEGATIVE); Pregs Control Background? CLEAR/WHITE (CLR/WHITE); Pregs Control Bar Appear? YES (CONTROL BAR)
--- NOTE | 2018-02-01 10:52 | RAD ---
CHEST PA AND LATERAL: History: 37-year-old female for pre-operative evaluation. FINDINGS: Heart size is within normal limits. The lungs are clear. IMPRESSION: No acute intrathoracic disease. No evidence for pneumonia or other acute process. POS: [facility]
[2018-02-01 11:02] LABS: ALT (SGPT) 36 U/L (8-55); AST (SGOT) 41 U/L (5-34); Albumin 4.4 g/dL (3.5-5.0); Alkaline Phosphatase 97 U/L (40-150); Anion Gap 11 mmol/L (10-20); BUN (Urea Nitrogen) 17 mg/dL (7.0-18.7); Bilirubin, Direct 0.2 mg/dL (0.1-0.3); Bilirubin, Total 0.4 mg/dL (0.2-1.2); Calc. Creatinine Clearance 0 mL/min (70-130); Calcium 9.8 mg/dL (7.8-10.44); Carbon Dioxide 25 mmol/L (22-29); Chloride 104 mmol/L (98-107); Estimated GFR-MDRD 85; Globulin 3.4 g/dL (2.4-3.5); Glucose 100 mg/dL (70-105); Potassium 3.5 mmol/L (3.5-5.1); Protein, Total 7.8 g/dL (6.0-8.3); Sodium 136 mmol/L (136-145)
[2018-02-01 13:46] LABS: Hemoglobin A1c 5.6 % (4.0-6.0)
== END 2018-02-01 09:31 | disposition home or self-care (01) ==
LOC: LABBT 09:30
PROVIDERS: ATTEND Surgery
DX: Z01.818 Encounter for other preprocedural examination (principal); E66.01 Morbid (severe) obesity due to excess calories
CPT/HCPCS: 71046; 80053; 80076; 83036; 84703; 85025; 93005; 93010

== ENCOUNTER 2018-02-13 07:40 | Emergency (ER) | payer OTHER ==
[2018-02-13] MEDS ORDERED: Promethazine HCl 25 MG/ML VIAL ONE (08:08)
[2018-02-13] MEDS ORDERED: Famotidine/PF 20 mg/2ml Vial ONE (08:08)
[2018-02-13] MEDS ORDERED: Morphine 4 MG/ML VIAL ONE ×2 (08:08→09:38)
[2018-02-13 08:11] LABS: Bilirubin Negative (Negative); Blood, Urine Trace (Negative); Clarity Slightly Cloudy (Clear); Glucose, Urine (Dipstick) Negative (Negative); Leukocyte Large (Negative); Nitrite Positive (Negative); Protein, Urine (Dipstick) Negative (Neg-Trace); Urobilinogen 0.2 mg/dL (0.2-1.0)
[2018-02-13 08:16] LABS: Bacteria/HPF 3+ HPF (None Seen); Hyaline Casts/LPF NONE SEEN LPF (0-3 Hyaline); Squamous Epithelial 0-3 HPF (0-3)
[2018-02-13 08:32] LABS: BHCG - Serum Negative (NEGATIVE); Pregs Control Background? CLEAR/WHITE (CLR/WHITE); Pregs Control Bar Appear? YES (CONTROL BAR)
[2018-02-13 08:39] LABS: Hemoglobin 14.2 g/dL (12.0-16.0); Mean Corpuscular HGB CONC 32.3 g/dL (32.0-36.0); Mean Corpuscular Hemoglobin 29.3 pg (27.0-31.0); Mean Corpuscular Volume 90.7 fL (78.0-98.0); Mean Platelet Volume 11.9 fL (7.4-10.4); Platelet Count 193 thou/uL (130-400); RBC Distribution Width 12.6 % (11.5-14.5); Red Blood Cell (RBC) Count 4.85 mill/uL (4.20-5.40); White Blood Cell (WBC) Count 10.9 thou/uL (4.8-10.8)
[2018-02-13 08:49] LABS: Eosinophils 4 % (0-10); Lymphocytes 38 % (21-51); MDiff Complete? YES; Monocytes 5 % (0-10); Neutrophil 52 % (42-75); PLT Morphology Comment Appears Adequate; RBC Morphology Normal
[2018-02-13] MEDS ORDERED: Iopamidol 370 76% 100 ML VIAL ONE ×2 (09:00)
--- NOTE | 2018-02-13 09:18 | RAD ---
ACUTE ABDOMINAL SERIES: Date: 02/13/18 Reference made to 01/21/16 exam. CLINICAL INDICATION: Abdominal pain. FINDINGS: The lungs are clear. There is no free air beneath the hemidiaphragms. There is mild dilatation of air -filled bowel of the abdomen. Surgical clips are seen at the upper and left central abdomen. Punctate densities of the pelvis indicate phlebolith formation. IMPRESSION: Mildly dilated air-filled small bowel. This could relate to ileus versus developing mechanical obstru ctive process. Recommend clinical correlation, as well as imaging follow-up to confirm resolution. CODE T. POS: [facility]
[2018-02-13 09:25] LABS: ALT (SGPT) 14 U/L (8-55); AST (SGOT) 21 U/L (5-34); Albumin 4.3 g/dL (3.5-5.0); Alkaline Phosphatase 85 U/L (40-150); Anion Gap 16 mmol/L (10-20); BUN (Urea Nitrogen) 9 mg/dL (7.0-18.7); Bilirubin, Total 0.5 mg/dL (0.2-1.2); Calc. Creatinine Clearance 0 mL/min (70-130); Calcium 9.2 mg/dL (7.8-10.44); Carbon Dioxide 21 mmol/L (22-29); Chloride 106 mmol/L (98-107); Estimated GFR-MDRD Greater than 90; Globulin 3.3 g/dL (2.4-3.5); Glucose 87 mg/dL (70-105); Lipase 23 U/L (8-78); Potassium 3.8 mmol/L (3.5-5.1); Protein, Total 7.6 g/dL (6.0-8.3); Sodium 139 mmol/L (136-145)
--- NOTE | 2018-02-13 13:12 | CT ---
CT ABDOMEN AND PELVIS WITH IV CONTRAST: 02/13/2018 HISTORY: Abdominal pain. The patient is post gastric sleeve procedure on 02/04/2018. COMPARISON: 09/21/2017 FINDINGS: The lung bases are clear. Post surgical changes of the stomach are noted, likely related to a prior gastric sleeve procedure. There is dense contrast present within the stomach and proximal duodenum without evidence of extravas ation of contrast present. There is mild thickening in the region of the GE junction and the gastric antrum, probably related to incomplete distention and the post surgical changes. No fluid collectio n, free fluid, or free intraperitoneal gas is seen in the left upper quadrant, adjacent to an area of post surgical change. A tiny amount of free fluid is seen just inferior to the right hepatic lobe, in the right paracolic gutter. In addition, there is a tiny amount of free fluid in the cul-de-sac, which is probably physiologic in origin. Nonobstructing bilateral renal calculi are seen with stable subcentimeter, sba-vyxcl-hq-characterize, hypodense lesions in each kidney. The liver, spleen, pancreas, bilateral adrenal glands, abdominal aorta, and urinary bladder demonstra te a normal CT appearance. There is slight heterogeneity of the uterus. A small uterine fibroid in the uterine fundus cannot be entirely excluded. The adnexal structures have a grossly normal appearance for the patient's age. The osseous structures have a normal appearance. IMPRESSION: 1. Post surgical changes of the stomach. There is no extravasation of contrast, and no fluid collec tion, free fluid, or free intraperitoneal gas is seen in the left upper quadrant. 2. Nonobstructing bilateral renal calculi with stable subcentimeter, hypodense lesions in each kidne y. 3. Trace amount of free fluid in the cul-de-sac, which may be physiologic. A tiny amount of fluid i s seen adjacent to the inferior right hepatic lobe. 4. Mild stranding in the adipose tissue, anterior abdomen, probably related to prior surgery. 5. No acute findings are seen in the abdomen or pelvis. POS: [facility]
== END 2018-02-13 13:50 | disposition home or self-care (01) ==
LOC: SCSER 07:40
DX: R10.13 Epigastric pain (principal); R11.2 Nausea with vomiting, unspecified; F41.9 Anxiety disorder, unspecified; F32.9 Major depressive disorder, single episode, unspecified; Z87.442 Personal history of urinary calculi; Z79.899 Other long term (current) drug therapy
CPT/HCPCS: 74022; 74177; 80053; 81003; 81015; 83690; 84703; 85025; 87077; 87086; 87186; 96361; 96365; 96375; 96376; J2270; J2550; S0028

== ENCOUNTER 2018-04-11 04:27 | Emergency (ER) | payer OTHER ==
[2018-04-11] MEDS ORDERED: HYDROcodone/Acetaminophen 10/325 mg Tablet ONE (04:40)
[2018-04-11] MEDS ORDERED: Nitroglycerin 2% Ointment 1 INCH/1 GM Packet ONE (04:59)
[2018-04-11] MEDS ORDERED: Lidocaine Viscous Sol 2% 15 ml UD Cup ONE (04:59)
[2018-04-11] MEDS ORDERED: Morphine 4 MG/ML VIAL ONE (05:55)
== END 2018-04-11 06:00 | disposition home or self-care (01) ==
LOC: ERS 04:27
DX: K60.2 Anal fissure, unspecified (principal); F32.9 Major depressive disorder, single episode, unspecified; F41.9 Anxiety disorder, unspecified; K51.90 Ulcerative colitis, unspecified, without complications; Z87.442 Personal history of urinary calculi; Z79.899 Other long term (current) drug therapy
CPT/HCPCS: 96372; J2270

== ENCOUNTER → 2018-04-12 | Day surgery (SDC) | payer OTHER ==
[~2018-04-12] MED LIST: Bupivacaine HCl 0.5%/Epinephrine 1:200,000/PF 30 ml Vial ONE; Fentanyl 100 MCG/2 ML VIAL ONE; Glycopyrrolate 0.2 MG/ML 5 ML SYRINGE ONE; Ketorolac Tromethamine 30 MG/ML VIAL ONE; Lidocaine 1% PF 5 ML VIAL ONE; Lidocaine 2% PF 5 ML VIAL ONE; Meperidine HCl/PF 25 MG/ML VIAL ONE; Midazolam HCl 2 mg/2 ml Vial ONE; Ondansetron PF 4 MG/2 ML Vial ONE; PHENYLEPHRINE-NS 100 MCG/ML 10 ML SYRINGE ONE; PROPOFOL 200 MG/20 ML VIAL ONE; Sodium Chloride 0.9% 1,000 ML IV SCH; Succinylcholine Chloride 20 MG/ML 10 ml SYRINGE FS ONE; Thrombin 5000 UNITS/5 ML VIAL ONE; cefOXitin Sodium/Dextrose,Iso 2 GM in Premix Bag 1 BAG IVPB ONE
--- NOTE | 2018-04-12 19:11 | HP ---
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 She has a history of ulcerative colitis, but has been inactive. She has been on medication for this, but not the past few weeks. She has had terrible perianal pain. She has tried nitroglycerin paste. She is using this intermittently. She has tried stool softener. She has had exquisite pain. She was in Dr. Hidalgo's office, having exquisite pain and today, I saw her in the emergency room and examined her. She does have a posterior anal fissure. She has typical symptoms of an anal fissure with terrible pain with defecation. She attributes this to a severe episode of constipation 6 to 8 weeks ago. She has tried MiraLAX, fiber, Xylocaine ointment. I have talked to her about different treatment modalities including 0.2% nitroglycerin paste compounded into a cream to be acquired from [facility], which is not available to [facility]. I encouraged and told her that she can take MiraLAX and fiber daily. She cannot wait the weekend. She is in such severe pain. I talked to her about Botulinum injections. Considering her severe pain and this being Sunday, she cannot go through the weekend. Plan at this time is internal sphincterotomy. She understands the risks and benefits, consents. ALLERGIES: NONE. TOBACCO: None. ALCOHOL: Socially. MEDICATIONS: 1. Zolpidem ER. 2. Sertraline 100 mg at bedtime. 3. vitamins daily with ODT Zofran as needed. 4. Lialda 2.4 g a day. 5. Hydrocodone 7.5/325 as needed for pain. 6. Zyrtec. 7. Biotin. 8. Alprazolam. PAST SURGICAL HISTORY: Laparoscopic sleeve gastrectomy, Dr. Hope performed on 02/06/2018, she has lost over 45 pounds; 06/05/2017, repeat ; multiple urolithiasis, on 06/24/2014, Dr. France, laparoscopic cholecystectomy; on 05/19/2014, Dr. Hidalgo, normal colonoscopy without evidence of active ulcerative colitis. PAST MEDICAL HISTORY: Depression, anxiety, ulcerative colitis, in remission. REVIEW OF SYSTEMS: Ten-point noncontributory. PHYSICAL EXAMINATION: HEENT: Head, ears, eyes, nose, and throat unremarkable. LUNGS: Clear to auscultation. CARDIAC: Regular rate and rhythm. No murmur or gallop. ABDOMEN: Soft and nontender. EXTREMITIES: Unremarkable. RECTAL: Perianal area reveals a posterior anal fissure. It is exquisitely tender. Perianal area otherwise unremarkable. Rectal exam not performed due to the severe pain she is having from her anal fissure. ASSESSMENT AND PLAN: Anal fissure. After discussion of different treatment modalities, she has discussed options with her . She desires to proceed with exam under anesthesia and an internal sphincterotomy and disimpaction if indicated. She understands risks, benefits and consents. Job ID: [id number]
--- NOTE | 2018-04-12 21:35 | OP ---
DATE OF PROCEDURE: 04/12/2018 PREOPERATIVE DIAGNOSIS: Posterior anal fissure with severe pain refractory to medical management. POSTOPERATIVE DIAGNOSIS: Posterior anal fissure with severe pain refractory to medical management. PROCEDURE PERFORMED: Exam under anesthesia. No impaction. Right lateral internal sphincterotomy, posterior anal fissure appreciated. ANESTHESIA: General, local of 0.5% Marcaine with epinephrine 30 mL mixed with 2% Xylocaine 10 mL, 20 mL mixture used. DESCRIPTION OF PROCEDURE: The patient was taken to the operating room, where under general anesthesia in dorsal lithotomy position, rectal exam revealed absence of impaction. Right lateral perianal incision was made and internal sphincterotomy was performed with the cautery. Hemostasis was appreciated. Skin was approximated with continuous locking suture of 3-0 chromic. Local anesthetic mixture was infiltrated into the skin, subcutaneous tissue perianal around the sphincterotomy incision in the posterior where there was anal fissure. Xeroform gauze was placed in the anal canal. Bandage applied. The patient tolerated the procedure well. Job ID: [id number]
== END ==
LOC: ERS 13:57
PROVIDERS: ATTEND Specialist
PROC: 0D8R3ZZ Division of Anal Sphincter, Percutaneous Approach (ICD-10-PCS; principal; 2018-04-12)
DX: K60.2 Anal fissure, unspecified (principal); F41.9 Anxiety disorder, unspecified; F32.9 Major depressive disorder, single episode, unspecified; J45.909 Unspecified asthma, uncomplicated; Z79.899 Other long term (current) drug therapy; Z98.84 Bariatric surgery status
CPT/HCPCS: 96374; 96375; J0670; J1885; J2001; J2175; J2250; J2405; J2704; J3010

== ENCOUNTER 2018-07-28 21:46 | Emergency (ER) | payer OTHER ==
[2018-07-28 22:29] LABS: #Basophils 0.1 thou/uL (0.0-0.2); #Eosinphils 0.2 thou/uL (0.0-0.7); #Neutrophils 5.4 thou/uL (1.40-6.50); %Lymphocytes 42.5 % (21.0-51.0); %Monocytes 8.3 % (0.0-10.0); %Neutrophils 46.1 % (42.0-75.0); Hemoglobin 13.1 g/dL (12.0-16.0); Mean Corpuscular HGB CONC 34.2 g/dL (32.0-36.0); Mean Corpuscular Hemoglobin 32.8 pg (27.0-31.0); Mean Corpuscular Volume 95.8 fL (78.0-98.0); Mean Platelet Volume 10.3 fL (7.4-10.4); Platelet Count 169 thou/uL (130-400); RBC Distribution Width 12.1 % (11.5-14.5); White Blood Cell (WBC) Count 11.8 thou/uL (4.8-10.8)
--- NOTE | 2018-07-28 22:34 | RAD ---
RADIOGRAPH CHEST 1 VIEW: DATE: 07/28/2018 HISTORY: 37-year-old female with chest pain FINDINGS: The visualized lung herron are clear. The cardiomediastinal silhouette and hilar shadows are normal. The lateral costophrenic angles are sharp. The osseous structures appear normal. There is no pneumothorax. IMPRESSION: Negative.
[2018-07-28 22:52] LABS: ALT (SGPT) 9 U/L (8-55); AST (SGOT) 21 U/L (5-34); Albumin 4.4 g/dL (3.5-5.0); Alkaline Phosphatase 79 U/L (40-150); Anion Gap 16 mmol/L (10-20); BUN (Urea Nitrogen) 20 mg/dL (7.0-18.7); Bilirubin, Total 0.4 mg/dL (0.2-1.2); Calc. Creatinine Clearance 0 mL/min (70-130); Calcium 9.8 mg/dL (7.8-10.44); Carbon Dioxide 21 mmol/L (22-29); Chloride 108 mmol/L (98-107); Estimated GFR-MDRD 79; Globulin 2.9 g/dL (2.4-3.5); Glucose 75 mg/dL (70-105); Lipase 30 U/L (8-78); Potassium 3.7 mmol/L (3.5-5.1); Protein, Total 7.3 g/dL (6.0-8.3); Sodium 141 mmol/L (136-145)
[2018-07-28] MEDS ORDERED: Ondansetron PF 4 MG/2 ML Vial ONE (23:47)
[2018-07-28] MEDS ORDERED: Morphine 4 MG/ML VIAL ONE (23:47)
== END 2018-07-29 00:30 | disposition home or self-care (01) ==
LOC: ERS 21:46
DX: R10.12 Left upper quadrant pain (principal); N39.0 Urinary tract infection, site not specified; F31.9 Bipolar disorder, unspecified; F41.9 Anxiety disorder, unspecified; Z87.891 Personal history of nicotine dependence; Z79.899 Other long term (current) drug therapy
CPT/HCPCS: 36415; 71045; 80053; 83690; 85025; 87077; 87086; 87186; 93005; 96374; 96375; J2270; J2405

== ENCOUNTER 2018-07-30 22:31 | Emergency (ER) | payer OTHER ==
[2018-07-30 23:27] LABS: #Basophils 0.1 thou/uL (0.0-0.2); #Eosinphils 0.4 thou/uL (0.0-0.7); #Lymphocytes 4.2 thou/uL (1.20-3.40); #Monocytes 0.9 thou/uL (0.11-0.59); #Neutrophils 7.5 thou/uL (1.40-6.50); %Basophils 1.1 % (0.0-1.0); %Eosinophils 2.7 % (0.0-10.0); %Monocytes 6.6 % (0.0-10.0); %Neutrophils 57.6 % (42.0-75.0); Hemoglobin 14.3 g/dL (12.0-16.0); Mean Corpuscular HGB CONC 33.6 g/dL (32.0-36.0); Mean Corpuscular Hemoglobin 32.6 pg (27.0-31.0); Mean Corpuscular Volume 97.1 fL (78.0-98.0); Mean Platelet Volume 10.2 fL (7.4-10.4); Platelet Count 172 thou/uL (130-400); RBC Distribution Width 12.2 % (11.5-14.5); Red Blood Cell (RBC) Count 4.38 mill/uL (4.20-5.40); White Blood Cell (WBC) Count 13.1 thou/uL (4.8-10.8)
[2018-07-30] MEDS ORDERED: Ondansetron PF 4 MG/2 ML Vial ONE (23:34)
[2018-07-30] MEDS ORDERED: HYDROmorphone 0.5 MG/0.5 ML SYRINGE ONE (23:34)
[2018-07-30 23:41] LABS: BHCG - Serum Negative (NEGATIVE); Pregs Control Background? CLEAR/WHITE (CLR/WHITE); Pregs Control Bar Appear? YES (CONTROL BAR)
[2018-07-30 23:51] LABS: ALT (SGPT) 10 U/L (8-55); AST (SGOT) 19 U/L (5-34); Albumin 4.5 g/dL (3.5-5.0); Alkaline Phosphatase 77 U/L (40-150); Anion Gap 13 mmol/L (10-20); BUN (Urea Nitrogen) 17 mg/dL (7.0-18.7); Bilirubin, Total 0.3 mg/dL (0.2-1.2); Calc. Creatinine Clearance 0 mL/min (70-130); Calcium 8.9 mg/dL (7.8-10.44); Carbon Dioxide 20 mmol/L (22-29); Chloride 111 mmol/L (98-107); Estimated GFR-MDRD Greater than 90; Globulin 3.1 g/dL (2.4-3.5); Glucose 71 mg/dL (70-105); Lipase 48 U/L (8-78); Potassium 3.3 mmol/L (3.5-5.1); Protein, Total 7.6 g/dL (6.0-8.3); Sodium 141 mmol/L (136-145)
[2018-07-31] MEDS ORDERED: diphenhydrAMINE 50 MG/ML VIAL ONE (01:29)
--- NOTE | 2018-07-31 07:40 | CT ---
PRELIMINARY REPORT/[facility]/EMERGENCY AFTER HOURS PROCEDURES Addendum created by Elvira Garay MD on 07/31/2018 2:08 AM Central Time ([place] & [place]) Findings were discussed with Chino Cortez at 07/31/2018 2:07 AM CDT. Initial Report created on 07/31/2018 2:00 AM Central Time ([place] & [place]) EXAM: CT Abdomen and Pelvis With Contrast EXAM DATE/TIME: 07/31/2018 1:16 AM CLINICAL HISTORY: 37 years old, female; Signs and symptoms; Patient HX: Er9; Previous on pacs; With oral contrast; F38, epigastric pain, nausea, gastric sleeve. Surgical history of cholecystectomy, laparoscopic, surgical history of section. Renal stents - most recent placement 01/21/16, gastric sleeve 02/04/18 TECHNIQUE: Imaging protocol: Axial computed tomography images of the abdomen and pelvis with intravenous contrast. Coronal reformatted images were created and reviewed. COMPARISON: No relevant prior studies available. FINDINGS: Lungs: No consolidations. ABDOMEN: Liver: No mass. Gallbladder and bile ducts: No calcified stones. No ductal dilation. Pancreas: No mass or ductal dilation. Spleen: No mass. Adrenals: No mass. Kidneys and ureters: Bilateral subcentimeter renal stones. No hydronephrosis. Stomach and bowel: Surgical changes of gastric sleeve. Oral contrast is seen in the small bowel. No bowel obstruction. Appendix: No evidence of appendicitis. PELVIS: Bladder: Normal. Reproductive: No right adnexal mass. Left adnexal 3.5 cm cyst. Normal appearance of the uterus. ABDOMEN and PELVIS: Intraperitoneal space: Small amount of high density fluid in the pelvis and right pericolic gutter. Bones/joints: No suspicious bone lesions. Soft tissues: No acute findings. Vasculature: No abdominal aortic aneurysm. Lymph nodes: No lymphadenopathy. IMPRESSION: 1. There is a small amount of high density fluid in the pelvis and right pericolic gutter consistent with acute blood. In the absence of trauma, this is commonly from a ruptured hemorrhagic cyst. Differential would include ovarian torsion or ruptured ectopic in the appropriate clinical setting. Left adnexal 3.5 cm cyst. 2. Bilateral nephrolithiasis without obstruction. Thank you for allowing us to participate in the care of your patient. Dictated and Authenticated by: Elvira Garay MD 07/31/2018 2:00 AM Central Time ([place] & [place]) FINAL REPORT CT ABDOMEN AND PELVIS WITH ORAL AND IV CONTRAST: I agree with the report given by Dr. Elvira Garay of [facility]. Transcribed Date/Time: 07/31/2018 9:22 AM
== END 2018-07-31 02:40 | disposition home or self-care (01) ==
LOC: ERS 22:31
DX: N83.202 Unspecified ovarian cyst, left side (principal); F41.9 Anxiety disorder, unspecified; F31.9 Bipolar disorder, unspecified; Z87.891 Personal history of nicotine dependence; Z79.899 Other long term (current) drug therapy
CPT/HCPCS: 74177; 80053; 83690; 84484; 84703; 85025; 96374; 96375; J1170; J1200; J2405

== ENCOUNTER 2018-10-02 14:03 | Outpatient (CLI) | payer OTHER ==
--- NOTE | 2018-10-02 15:04 | CT ---
CT Abdomen Pelvis WO Con 10/02/2018 12:00 AM HISTORY: Calculus of kidney. Patient having left flank pain for a couple of days. COMPARISON: 07/31/2018 Technique: Multiple contiguous axial CT images are obtained through the abdomen and pelvis without IV contrast. Coronal reformats are provided. FINDINGS: This examination is limited for the evaluation of solid organs and vascular structures due to the lac k of intravenous contrast. Lower Chest: Lung bases are clear. Abdomen: Liver: Grossly normal nonenhanced CT appearance. Gallbladder: Not visualized and likely surgically absent. Pancreas: Grossly normal nonenhanced CT appearance. Spleen: Grossly normal nonenhanced CT appearance. Adrenals: Grossly normal nonenhanced CT appearance. Kidneys: Stable nonobstructing bilateral renal calculi largest in the midportion left kidney measurin g 5 mm with largest on the right measuring 7 mm. There is no hydronephrosis. There is mild increased density of the medullary pyramids which may be related to concentrated urine; however, this is a stable finding compared to prior studies in 2016 and 2013. Ureters: No ureteral calculus is seen. There are calcifications in the left hemipelvis stable compare d to prior studies and are related to phleboliths. Pelvis: Urinary bladder: Partially distended and grossly normal in appearance. Reproductive Organs: No pelvic masses. Lymph Nodes: No enlarged lymph nodes. Bowel: There are oval-shaped areas of increased density within loops of small bowel in the right lowe r quadrant likely attributable to ingested material and possibly medication. Loops of small bowel are normal in caliber. There are postsurgical changes again seen involving the stomach. Appendix: The appendix is normal in caliber. Peritoneum and retroperitoneum: Small amount of free fluid is seen in the lower pelvis likely physiol ogic in origin. Vessels: Limited evaluation due to lack of intravenous contrast, but the abdominal aorta is normal in caliber.. Abdominal Wall: within normal limits. Bones: within normal limits. IMPRESSION: 1. Stable nonobstructing bilateral renal calculi.
== END 2018-10-02 14:04 | disposition home or self-care (01) ==
LOC: SCSCT 14:03
PROVIDERS: ATTEND Urology
DX: N20.0 Calculus of kidney (principal)
CPT/HCPCS: 74176

== ENCOUNTER 2018-12-03 11:55 | Outpatient (CLI) | payer OTHER ==
--- NOTE | 2018-12-03 12:34 | CT ---
CT ABDOMEN NONCONTRAST CT PELVIS NONCONTRAST: (Urolithiasis protocol) DATE: 12/03/2018 HISTORY: 38-year-old female with "ICD-10: N 20.0 calculus of kidney" COMPARISON: 10/02/2018 TECHNIQUE: IV injection of iodinated contrast media: None Oral contrast media: None FINDINGS: Other than for urolithiasis, the lack of IV and oral contrast limits the evaluation. There is a new right-sided ureteral stent with lower curl in the contralateral left side of the urina ry bladder lumen, and upper curl in right renal upper pole major calyx. No hydronephrosis bilaterally. One of the previously demonstrated right renal calculi has migrated into the lower right ureter, to the mid sacral level. It measures approximately 7 x 3 x 3 mm. Tiny 2 to 3 mm calculus at a right renal lower pole calyx. 5 x 3 x 3 mm calculus at a left renal uppe r pole calyx. No hydronephrosis. Within the limitations of a noncontrast scan, no gross abnormality identified invo lving liver, abdominal aorta, adrenals, pancreas, spleen, or urinary bladder. Appendix difficult to identify. No signs of colonic diverticulitis. No small bowel dilation. No pneumoperitoneum, ascites, or pleural effusion. Suture line along narrowed stomach. Gallbladder not visualized. No cholecystectomy clips. IMPRESSION: 1) right ureteral stent in place. 2) distal right ureteral calculus at mid sacral level. 3) no hydronephrosis. 4) bilateral nephrolithiasis, with at least one calculus on each side. 5) status post bariatric surgery. 6) probable status post cholecystectomy.
== END 2018-12-03 11:56 | disposition home or self-care (01) ==
LOC: SCSCT 11:55
PROVIDERS: ATTEND Urology
DX: N20.2 Calculus of kidney with calculus of ureter (principal); Z98.890 Other specified postprocedural states
CPT/HCPCS: 74176

== ENCOUNTER 2018-12-06 09:17 | Outpatient (CLI) | payer OTHER ==
[2018-12-06 14:20] LABS: Hemoglobin 13.7 g/dL (12.0-16.0); Mean Corpuscular Hemoglobin 32.3 pg (27.0-31.0); Mean Corpuscular Volume 94.9 fL (78.0-98.0); Mean Platelet Volume 8.4 fL (7.4-10.4); Platelet Count 294 thou/uL (130-400); RBC Distribution Width 11.9 % (11.5-14.5); Red Blood Cell (RBC) Count 4.24 mill/uL (4.20-5.40); White Blood Cell (WBC) Count 9.4 thou/uL (4.8-10.8)
[2018-12-06 14:30] LABS: INR-International Normal Ratio 1.1; PTT 31.1 SEC (22.9-36.1); Prothrombin Time 13.7 SEC (12.0-14.7)
[2018-12-06 14:31] LABS: BHCG - Serum Negative (NEGATIVE); Pregs Control Background? CLEAR/WHITE (CLR/WHITE); Pregs Control Bar Appear? YES (CONTROL BAR)
[2018-12-06 14:45] LABS: Anion Gap 14 mmol/L (10-20); BUN (Urea Nitrogen) 6 mg/dL (7.0-18.7); Calc. Creatinine Clearance 0 mL/min (70-130); Calcium 9.6 mg/dL (7.8-10.44); Carbon Dioxide 24 mmol/L (22-29); Chloride 106 mmol/L (98-107); Estimated GFR-MDRD Greater than 90; Glucose 82 mg/dL (70-105); Potassium 3.8 mmol/L (3.5-5.1); Sodium 140 mmol/L (136-145)
== END 2018-12-06 09:18 | disposition home or self-care (01) ==
LOC: LABBT 09:17
PROVIDERS: ATTEND Urology
DX: Z01.812 Encounter for preprocedural laboratory examination (principal); N20.0 Calculus of kidney
CPT/HCPCS: 80048; 84703; 85027; 85610; 85730

== ENCOUNTER 2018-12-09 06:00 | Day surgery (SDC) | payer OTHER ==
[2018-12-06 13:30] VITALS: BMI 25.0
[2018-12-09] MEDS ORDERED: MEROPENEM 1 GM/50 ML 1 GM in Premix Bag 1 BAG IVPB SCH (06:30)
[2018-12-09] MEDS ORDERED: Scopolamine 1.5 mg/72 hour Patch ONE (06:55)
[2018-12-09] MEDS ORDERED: Midazolam HCl 2 mg/2 ml Vial ONE (06:55)
[2018-12-09] MEDS ORDERED: Fentanyl 100 MCG/2 ML VIAL ONE ×3 (07:13→08:35)
[2018-12-09] MEDS ORDERED: PROPOFOL 20 ML ONE (07:13)
[2018-12-09] MEDS ORDERED: Iothalamate Meglumine 60% 50 ML VIAL FS ONE (07:18)
[2018-12-09] MEDS ORDERED: Phenazopyridine HCl 97.5 MG TABLET ONE (08:35)
[2018-12-09] MEDS ORDERED: Oxybutynin 5 MG TAB ONE (08:35)
[2018-12-09] MEDS ORDERED: Promethazine HCl 25 MG/ML VIAL ONE (09:27)
--- NOTE | 2018-12-09 09:30 | RAD ---
KUB: DATE: 12/09/2018. COMPARISON: 02/13/2018. HISTORY: Surgery, left-sided ureteral stent. FINDINGS: A double-J ureteral stent is present on the right. Its configuration is stable when compared to a CT. The proximal curl is not fully formed. No discrete calcification is appreciated within the left upper quadrant. Prior CT demonstrated a tiny calcification in the mid pole which may not be visualized secondary to size. There are postoperative clips in the left upper quadrant. There is a punctate calcification within the right upper quadrant laterally measuring 3-4 mm which ma y represent a small renal stone on the right. No discrete calcification is seen along the course of the double-J ureteral stent. IMPRESSION: KUB as detailed above. POS: THIERRY
--- NOTE | 2018-12-09 10:07 | RAD ---
RETROGRADE PYELOGRAM: Date: 12/09/18 HISTORY: Stent. FINDINGS: The KUB performed earlier on 12/09/18 demonstrated a double-J ureteral stent on the right. Images dem onstrate removal of that stent and placement of a new right-sided double-J ureteral stent. IMPRESSION: Right ureteral stent exchange as above. POS: THIERRY
--- NOTE | 2018-12-09 12:28 | OP ---
DATE OF PROCEDURE: 12/09/2018 PREOPERATIVE DIAGNOSES: 1. Kathleen is a 38-year-old female with history of recurrent kidney stone, history of UTI, with obstructing ureteral stone, status post stent in [place]. CT demonstrating 7-mm right midsacral ureteral calculi. 2. Right lower pole punctate 2-to 3-mm calculi. 3. Left 5-mm upper pole renal calculi with no evidence of left hydronephrosis. POSTOPERATIVE DIAGNOSES: 1. Kathleen is a 38-year-old female with history of recurrent kidney stone, history of UTI, with obstructing ureteral stone, status post stent in [place]. CT demonstrating 7-mm right midsacral ureteral calculi. 2. Right lower pole punctate 2-to 3-mm calculi. 3. Left 5-mm upper pole renal calculi with no evidence of left hydronephrosis. PROCEDURES PERFORMED: Cystoscopy, right ureteral stent exchange 6 x 26, rigid ureteroscopy, laser lithotripsy of ureteral calculi, and basket extraction of stone fragments. ANESTHESIA: General. COMPLICATIONS: None apparent. DISPOSITION: To recovery room in stable condition. Stone for gross only as her stone analysis previously demonstrated calcium phosphate monohydrate dihydrate moiety. INDICATIONS FOR PROCEDURE: Kathleen is a 38-year-old female, well known to me with recurrent kidney stone. While taking care of her child in [place], she developed right flank pain, fever, chills, underwent ureteral stent placement in [place]. Her urine culture upon records demonstrate sensitivity to Levaquin, she has been on Levaquin with repeat urine culture negative and presents today for ureteroscopy and laser lithotripsy. Risks and complications and indications reviewed. Risks and complications including, but not limited to: Bleeding, pain, infection, injury to adjacent organs, ureteral injury, sepsis, possible secondary procedure was reviewed with her in detail and she desired to proceed. DESCRIPTION OF PROCEDURE: After an informed consent was signed, the patient was taken to the operating room, placed in a dorsal lithotomy position with the genital area prepped and draped in the usual surgical sterile fashion. Bilateral TING hose, SCDs, and broad-spectrum antibiotic with Levaquin and meropenem provided. A 22-Tajik cystoscope was utilized for cystoscopy. The previously placed ureteral stent was removed to the level of the meatus and a 0.35 Sensor wire was placed through the stent to the right upper pole. Rigid ureteroscopy was performed, which demonstrated that here ureter was passively dilated and the stone was easily visualized. Using a 365 micron laser fiber at 1.0 joules, we fragmented the stone into dust and fragmented them to 2 dominant debris and this was basket extracted uneventfully atraumatically. Endoscopic clearance was noted. A 6 x 26 double-J ureteral stent was placed without difficulty of the guidewire and the guidewire was subsequently removed. She tolerated the procedure well and transported to the recovery room in stable condition. She states that she has oxybutynin, [place] at home, which I previously provided. Levaquin x12 days provided to cover until the followup stent pull. Azo [id number] p.r.n. is advised. She will follow up with me on December 19, for cysto stent pull under local. Job ID: [id number] MTDD
[2018-12-09] MEDS ORDERED: Ketorolac Tromethamine 30 MG/ML VIAL ONE (14:32)
[2018-12-09] MEDS ORDERED: PROPOFOL 200 MG/20 ML VIAL ONE (14:32)
[2018-12-09] MEDS ORDERED: Dexamethasone 20 MG/5 ML VIAL ONE (14:32)
[2018-12-09] MEDS ORDERED: Succinylcholine Chloride 20 MG/ML 10 ml SYRINGE FS ONE (14:32)
[2018-12-09] MEDS ORDERED: ePHEDrine 50 MG/ML VIAL ONE (14:32)
[2018-12-09] MEDS ORDERED: Lidocaine 1% PF 5 ML VIAL ONE (14:32)
[2018-12-13 11:11] LABS: CA Hydrogen Phos 25 % (.); CA Oxalate Monohydrate 40 % (.); CA Phosphate 35 % (.); Color Brown (.)
== END 2018-12-09 09:45 | disposition home or self-care (01) ==
LOC: SDC 06:00
PROVIDERS: ATTEND Urology
PROC: 0TF68ZZ Fragmentation in Right Ureter, Via Natural or Artificial Opening Endoscopic (ICD-10-PCS; principal; 2018-12-09)
PROC: 0T768DZ Dilation of Right Ureter with Intraluminal Device, Via Natural or Artificial Opening Endoscopic (ICD-10-PCS; principal; 2018-12-09)
DX: N20.2 Calculus of kidney with calculus of ureter (principal); F41.9 Anxiety disorder, unspecified; F32.9 Major depressive disorder, single episode, unspecified; N39.0 Urinary tract infection, site not specified; Z79.899 Other long term (current) drug therapy; Z88.8 Allergy status to other drugs, medicaments and biological substances; Z87.891 Personal history of nicotine dependence
CPT/HCPCS: 74018; 74420; 82365; 88300; C1758; C1769; J2185; J2250; J2550; J2704; J3010

== ENCOUNTER 2020-11-24 13:53 | Outpatient (CLI) | payer OTHER | END 2020-11-24 13:54 | disposition home or self-care (01) | LOC: BICMAMMO 13:53 | PROVIDERS: ATTEND Family Medicine | DX: Z12.31 Encounter for screening mammogram for malignant neoplasm of breast (principal) | CPT/HCPCS: 77063; 77067 ==

== ENCOUNTER 2020-12-10 09:30 | Outpatient (CLI) | payer OTHER | END 2020-12-10 09:31 | disposition home or self-care (01) | LOC: RAD 09:30 | PROVIDERS: ATTEND Urology | DX: N20.2 Calculus of kidney with calculus of ureter (principal); N39.0 Urinary tract infection, site not specified; N29 Other disorders of kidney and ureter in diseases classified elsewhere | CPT/HCPCS: 74176 ==

== ENCOUNTER 2020-12-13 11:34 | Outpatient (CLI) | payer OTHER ==
[2020-12-13 12:35] LABS: Hemoglobin 14.9 g/dL (12.0-15.5); Mean Corpuscular HGB CONC 34.1 g/dL (32.0-36.0); Mean Corpuscular Hemoglobin 31.8 pg (27.0-33.0); Mean Corpuscular Volume 93.2 fl (81.6-98.3); Mean Platelet Volume 11.5 fl (7.4-10.4); Platelet Count 194 10x3/uL (150-450); RBC Distribution Width 13.5 % (11.5-14.5); Red Blood Cell (RBC) Count 4.69 10x6/uL (3.90-5.03); White Blood Cell (WBC) Count 10.6 10x3/uL (3.5-10.5)
[2020-12-13 12:47] LABS: INR-International Normal Ratio 0.9; PTT 26.4 sec (22.0-33.0); Prothrombin Time 10.4 sec (9.5-12.1)
[2020-12-13 12:51] LABS: Anion Gap 13 mmol/L (10-20); BUN (Urea Nitrogen) 9 mg/dL (7.0-18.7); Calc. Creatinine Clearance 0 mL/min (70-130); Calcium 8.8 mg/dL (7.8-10.44); Carbon Dioxide 22 mmol/L (22-29); Chloride 112 mmol/L (98-107); Glucose 101 mg/dL (70-105); Potassium 3.6 mmol/L (3.5-5.1); Sodium 143 mmol/L (136-145)
[2020-12-13 23:44] LABS: SARS-CoV-2 PCR by NAA Not Detected (NotDetected)
== END 2020-12-13 11:35 | disposition home or self-care (01) ==
LOC: LABBT 11:34
PROVIDERS: ATTEND Urology
DX: Z01.818 Encounter for other preprocedural examination (principal); N20.0 Calculus of kidney; R35.0 Frequency of micturition; Z20.822 Contact with and (suspected) exposure to COVID-19
CPT/HCPCS: 80048; 85027; 85610; 85730; 93005; 93010; U0003; U0005

== ENCOUNTER 2020-12-15 07:38 | Day surgery (SDC) | payer OTHER ==
[2020-12-14 13:02] VITALS: BMI 34.8
[2020-12-15] MEDS ORDERED: Fentanyl 100 MCG/2 ML VIAL ONE ×4 (08:18→12:12)
[2020-12-15] MEDS ORDERED: Levofloxacin 500 mg/D5W 100 ml Premix Bag ONE (08:19)
[2020-12-15] MEDS ORDERED: Iothalamate Meglumine 60% 50 ML VIAL FS ONE (10:27)
[2020-12-15] MEDS ORDERED: Midazolam HCl 2 mg/2 ml Vial ONE (10:35)
[2020-12-15] MEDS ORDERED: Glycopyrrolate 0.2 MG/ML 5 ML SYRINGE ONE ×2 (10:35→11:38)
[2020-12-15] MEDS ORDERED: PROPOFOL 200 MG/20 ML VIAL ONE (10:35)
[2020-12-15] MEDS ORDERED: Rocuronium Bromide 10 MG/ML (10ML VIAL) ONE (10:35)
[2020-12-15] MEDS ORDERED: Dexamethasone 20 MG/5 ML VIAL ONE (10:35)
[2020-12-15] MEDS ORDERED: Lidocaine 1% PF 5 ML VIAL ONE (10:35)
[2020-12-15] MEDS ORDERED: Phenazopyridine HCl 100 MG TAB ONE (11:44)
[2020-12-15] MEDS ORDERED: Oxybutynin 5 MG TAB ONE (11:45)
[2020-12-15] MEDS ORDERED: HYDROcodone/Acetaminophen 5/325 mg Tablet ONE ×2 (13:10→13:13)
== END 2020-12-15 13:49 | disposition home or self-care (01) ==
LOC: SDC 07:38
PROVIDERS: ATTEND Urology
PROC: 0TC78ZZ Extirpation of Matter from Left Ureter, Via Natural or Artificial Opening Endoscopic (ICD-10-PCS; principal; 2020-12-15)
PROC: 0TC48ZZ Extirpation of Matter from Left Kidney Pelvis, Via Natural or Artificial Opening Endoscopic (ICD-10-PCS; principal; 2020-12-15)
PROC: 0T788DZ Dilation of Bilateral Ureters with Intraluminal Device, Via Natural or Artificial Opening Endoscopic (ICD-10-PCS; principal; 2020-12-15)
DX: N20.2 Calculus of kidney with calculus of ureter (principal); Z90.49 Acquired absence of other specified parts of digestive tract; Z98.84 Bariatric surgery status; Z98.890 Other specified postprocedural states; Z87.891 Personal history of nicotine dependence; Z79.2 Long term (current) use of antibiotics; Z79.899 Other long term (current) drug therapy; Z88.5 Allergy status to narcotic agent
CPT/HCPCS: 74420; C2617; J1100; J1956; J2250; J2704; J3010; Q9961-U8

== ENCOUNTER 2022-02-08 14:52 | Outpatient (CLI) | payer BC | END 2022-02-08 14:53 | disposition home or self-care (01) | LOC: BICMAMMO 14:52 | PROVIDERS: ATTEND Family Medicine | DX: Z12.31 Encounter for screening mammogram for malignant neoplasm of breast (principal) | CPT/HCPCS: 77063; 77067 ==

== ENCOUNTER 2022-09-16 11:37 | Outpatient (CLI) | payer BC | END 2022-09-16 11:38 | disposition home or self-care (01) | LOC: RAD 11:37 | PROVIDERS: ATTEND Nurse Practitioner Family | DX: R06.02 Shortness of breath (principal); J98.4 Other disorders of lung | CPT/HCPCS: 71046 ==

== ENCOUNTER 2024-02-14 16:12 | Observation (INO) | payer BC ==
[2024-02-14] MEDS ORDERED: Ketorolac Tromethamine 30 MG (1 mL) VIAL IVP PRN (16:21)
[2024-02-14] MEDS ORDERED: HYDROcodone/Acetaminophen 5/325 mg Tablet PO PRN ×2 (16:21)
[2024-02-14] MEDS ORDERED: Morphine 2 MG/ML VIAL SLOW IVP PRN (16:21)
[2024-02-14] MEDS ORDERED: hydrALAZINE 20 MG/ML VIAL SLOW IVP PRN (16:21)
[2024-02-14] MEDS ORDERED: Ondansetron PF 4 MG/2 ML Vial IVP PRN (16:21)
[2024-02-14] MEDS ORDERED: Mag-Al 1200 mg/1200 mg/30 ML UDCUP PO PRN (16:21)
[2024-02-14] MEDS ORDERED: Oxybutynin 5 MG TAB PO PRN (16:21)
[2024-02-14 16:34] VITALS: BMI 37.8
[2024-02-14] MEDS: Morphine 4 MG/ML VIAL SLOW IVP PRN (17:52)
[2024-02-14] MEDS: cefTRIAXone\\ROCEPHIN 1 GM in Sodium Chloride 0.9% 100 ML IVPB SCH (17:52)
[2024-02-14] MEDS: diphenhydrAMINE 25 MG CAP PO PRN (18:03)
[2024-02-14] MEDS: diphenhydrAMINE 50 MG/ML VIAL IVP PRN (18:32)
[2024-02-14] MEDS: Pantoprazole DR 40 MG TAB PO SCH (21:12)
[2024-02-14] MEDS: Zolpidem Tartrate 5 MG TAB PO SCH (21:12)
[2024-02-14] MEDS: Docusate 100 MG CAP PO SCH (22:07)
[2024-02-14] MEDS: Sodium Chloride 0.9% 1,000 ML IV SCH (23:45)
[2024-02-15 03:48] VITALS: BP 124/74; TEMP 98.9
[2024-02-15 05:31] LABS: #Basophils 0.05 10x3/uL (0.0-0.2); %Basophils 0.5 % (0.0-1.0); %Eosinophils 3.1 % (0.0-10.0); %Lymphocytes 39.9 % (21.0-51.0); %Monocytes 7.8 % (0.0-10.0); %Neutrophils 48.5 % (42.0-75.0); Hematocrit 34.6 % (36.0-47.0); Hemoglobin 11.1 g/dL (12.0-16.0); Mean Corpuscular HGB CONC 32.1 g/dL (32.0-36.0); Mean Corpuscular Hemoglobin 28.4 pg (27.0-31.0); Mean Corpuscular Volume 88.5 fL (78.0-98.0); Mean Platelet Volume 11.4 fL (7.4-10.4); Platelet Count 219 10x3/uL (130-400); RBC Distribution Width 14.3 % (11.5-14.5); Red Blood Cell (RBC) Count 3.91 mill/uL (4.20-5.40)
[2024-02-15 06:00] LABS: Anion Gap 12 mmol/L (10-20); BUN (Urea Nitrogen) 7 mg/dL (7.0-18.7); Calc. Creatinine Clearance 188 mL/min (70-130); Calcium 8.1 mg/dL (7.8-10.44); Carbon Dioxide 21 mmol/L (22-29); Chloride 110 mmol/L (98-107); Estimated GFR 112; Glucose 86 mg/dL (70-105); Potassium 3.6 mmol/L (3.5-5.1); Sodium 139 mmol/L (136-145)
== END 2024-02-15 07:45 | disposition left against medical advice (07) ==
LOC: SDC 16:12 → SURG B 16:16
PROVIDERS: ADMIT Urology; ATTEND Urology
DX: N20.1 Calculus of ureter (principal); K58.9 Irritable bowel syndrome, unspecified; F90.9 Attention-deficit hyperactivity disorder, unspecified type; J45.909 Unspecified asthma, uncomplicated; K21.9 Gastro-esophageal reflux disease without esophagitis; G47.00 Insomnia, unspecified; Z87.891 Personal history of nicotine dependence; Z79.899 Other long term (current) drug therapy; Z98.84 Bariatric surgery status; Z90.49 Acquired absence of other specified parts of digestive tract; Z98.890 Other specified postprocedural states
CPT/HCPCS: 36415; 80048; 85025; J0696; J1200; J2272; J7030

== ENCOUNTER 2024-02-21 06:19 | Day surgery (SDC) | payer BC ==
[2024-02-18 14:41] VITALS: BMI 37.1
[2024-02-21] MEDS ORDERED: fentaNYL PF 100 MCG/2 ML SYRINGE ONE ×2 (07:10→09:18)
[2024-02-21] MEDS ORDERED: PROPOFOL 40 ML ONE (07:10)
[2024-02-21] MEDS ORDERED: Lidocaine 2% PF 5 ML VIAL ONE (07:10)
[2024-02-21] MEDS ORDERED: Rocuronium Bromide 10 MG/ML (10ML VIAL) ONE (07:10)
[2024-02-21] MEDS ORDERED: SUGAMMADEX SODIUM 200 MG/2 ML VIAL ONE (07:12)
[2024-02-21] MEDS ORDERED: Lidocaine 4% Topical Sol 50 ML BOT ONE (07:19)
[2024-02-21] MEDS ORDERED: Midazolam HCl 2 mg/2 ml Vial ONE (07:20)
[2024-02-21] MEDS ORDERED: KETAMINE 100 MG/ML (5ML VIAL) ONE (07:27)
[2024-02-21] MEDS ORDERED: D5W 500 MG IVPB SCH (07:45)
[2024-02-21] MEDS ORDERED: LEVOFLOXACIN IVPB SCH (07:45)
[2024-02-21] MEDS ORDERED: Glycopyrrolate 0.2 MG/ML 5 ML SYRINGE ONE (07:49)
[2024-02-21] MEDS ORDERED: Ondansetron PF 4 MG/2 ML Vial ONE (08:01)
[2024-02-21] MEDS ORDERED: Dexamethasone 4 mg/ml Vial ONE (08:01)
[2024-02-21] MEDS ORDERED: ePHEDrine Sulfate 50 MG/10 ML VIAL ONE (08:14)
[2024-02-21] MEDS ORDERED: Ketorolac Tromethamine 30 MG (1 mL) VIAL ONE (09:00)
[2024-02-21] MEDS ORDERED: Phenazopyridine HCl 100 MG TAB ONE (09:06)
[2024-02-21] MEDS ORDERED: Oxybutynin 5 MG TAB ONE (09:06)
[2024-02-21] MEDS ORDERED: HYDROcodone/Acetaminophen 5/325 mg Tablet ONE (09:43)
[2024-02-26 20:08] LABS: CA Oxalate Dihydrate 40 % (.); CA Oxalate Monohydrate 50 % (.); Color Brown (.); Stone Weight 149 mg (.)
== END 2024-02-21 10:49 | disposition home or self-care (01) ==
LOC: SDC 06:19
PROVIDERS: ATTEND Urology
PROC: 0TC78ZZ Extirpation of Matter from Left Ureter, Via Natural or Artificial Opening Endoscopic (ICD-10-PCS; principal; 2024-02-21)
PROC: 0T778DZ Dilation of Left Ureter with Intraluminal Device, Via Natural or Artificial Opening Endoscopic (ICD-10-PCS; principal; 2024-02-21)
DX: N20.2 Calculus of kidney with calculus of ureter (principal)
CPT/HCPCS: 74420; 82365; 88300; A6258; C1747; C1769; C2617; J1100; J1885; J1956; J2250; J2405; J2704